=== PATIENT | female | born 1970 | race Caucasian/White ===

== ENCOUNTER 2018-04-19 12:53 | Inpatient (IN) | payer MEDICAID, SELFPAY ==
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
--- NOTE | 2018-04-19 13:31 | EKG12_ITS ---
Test Reason : ALCOHOL WITHDRAWAL Blood Pressure : / mmHG Vent. Rate : 073 BPM Atrial Rate : 073 BPM P-R Int : 136 ms QRS Dur : 078 ms QT Int : 398 ms P-R-T Axes : 068 053 072 degrees QTc Int : 438 ms Normal sinus rhythm Normal ECG No previous ECGs available Confirmed by ELLIOTT KELLY, NICOL ([id number]), tape editor SAHRA WILSON ([id number] on 04/24/2018 9:55:45 AM Referred By: Terrie Stafford Confirmed By:NICOL GALLAGHER MD
[2018-04-19 13:32] VITALS: BMI 22.0
[2018-04-19 14:00] LABS: Absolute Lymphocyte Count 1.95 X10^3/ul (0.83-4.51); Absolute Neutrophil Count 6.4 X10^3/uL (2.0-7.7); Basophil# 0.02 X10^3/uL; Basophil% 0.2 % (0-1); Eosinophils% 1.1 % (0-5); Hematocrit 42.7 % (37-47); Hemoglobin 14.3 g/dl (12.0-15.0); Lymphocyte # 1.95 X10^3/ul (4.0); Lymphocyte % 21.5 % (19-41); Mean Corp Hgb Conc 33.5 g/gl (32-36); Mean Corpuscular Hgb 31.6 pg (27.0-32.0); Mean Corpuscular Volume 94.5 fL (81-99); Mean Platelet Vol. 8.7 fl (6.2-12.0); Monocyte# 0.64 X10^3/uL; Neutrophil # 6.36 X10^3/uL (2.7-7.7); POSITIVE COUNT NO; POSITIVE DIFFERENTIAL NO; POSITIVE MORPHOLOGY NO; Platelet Count 300 K/mm3 (150-450); RBC Distribution Width CV 13.2 % (11.6-14.6); RBC Distribution Width SD 44.3 fl (35.1-43.9); Red Blood Count 4.52 M/mm3 (4.2-5.4); White Blood Count 9.1 K/mm3 (4.4-11.0)
[2018-04-19 14:09] LABS: Prothrombin Time (Protime)PT. 13.1 SECONDS (11.7-14.9)
[2018-04-19 14:16] LABS: ALB/GLOB Ratio 1.5 RATIO (0.9-2.4); AST(SGOT) 15 U/L (15-37); Alanine Aminotransfer ALT/SGPT 23 U/L (13-56); Albumin, Serum 4.4 g/dL (3.2-5.0); Alkaline Phosphatase 91 U/L (45-117); Anion Gap 5 (5-15); BUN 10 mg/dL (7-18); BUN/Creat Ratio 14.2 RATIO (10-20); Calcium,Total 8.7 mg/dL (8.5-10.1); Chloride 105 mmol/L (98-107); EST Glomerular Filtration Rate 94 mL/min (>60); Est Glom Filt Rate - Afr Amer 114 mL/min (>60); Estimated Creatinine Clearance 88.44 ml/min; Globulin 2.9 g/dL (2.2-4.2); Glucose 85 mg/dL (74-106); Potassium 4.5 mmol/L (3.5-5.1); Protein, Total 7.3 g/dL (6.4-8.2); Sodium Level 139 mmol/L (136-145)
[2018-04-19 14:27] LABS: Alcohol, Blood (Medical)-Serum < 3.0 mg/dL
[2018-04-19 14:37] VITALS: BP 141/80; PULSE 69; RESP 16; TEMP 37.2
[2018-04-19] MEDS: Buprenorphine HCl 2 MG TAB.SUBL SL ×2 (15:13→21:10)
[2018-04-19] MEDS: LORazepam 1 MG Tablet PO ×3 (15:14→23:07)
[2018-04-19] MEDS: Dicyclomine 10 MG Capsule 20 MG PO (15:14)
[2018-04-19] MEDS: Ibuprofen 600 MG Tablet PO ×2 (15:14→23:57)
[2018-04-19 16:03] LABS: Amphetamine Urine VISTA NEGATIVE (<1000 ng/mL); Barbiturate Urine VISTA NEGATIVE (< 200 ng/mL); Benzodiazepine Urine VISTA NEGATIVE (< 200 ng/mL); Cocaine Urine VISTA POSITIVE (< 300 ng/mL); Ecstacy Urine VISTA NEGATIVE (< 500 ng/mL); Methadone Urine VISTA NEGATIVE (< 300 ng/mL); PCP Urine VISTA NEGATIVE (< 25 ng/mL); THC Urine VISTA POSITIVE (< 50 ng/mL); Vista UDS pH Range 6
[2018-04-19 20:57] VITALS: BP 102/61; PULSE 78; RESP 16; TEMP 36.8
[2018-04-19] MEDS: Pramipexole Di-HCl 0.25 MG Tablet PO (21:10)
[2018-04-19] MEDS: QUEtiapine 25 MG Tablet 50 MG PO (21:10)
[2018-04-19] MEDS: metroNIDAZOLE 500 MG Tablet PO (21:10)
[2018-04-19] MEDS: Loperamide 2 MG Capsule PO (21:15)
[2018-04-20] VITALS (10 sets, daily range): BP systolic 99–120; BP diastolic 52–77; PULSE 68–98; RESP 16–18; TEMP 36.4–36.9; O2SAT 97–99
[2018-04-20] MEDS: LORazepam 1 MG Tablet PO ×4 (02:44→21:46)
[2018-04-20] MEDS: cloNIDine HCl 0.1 MG Tablet PO ×2 (02:51→21:45)
[2018-04-20] MEDS: Buprenorphine HCl 2 MG TAB.SUBL SL ×3 (05:49→21:46)
[2018-04-20] MEDS: Folic Acid 1 MG Tablet PO (08:35)
[2018-04-20] MEDS: Multivitamins,Therapeutic Tablet 1 TABLET PO (08:35)
[2018-04-20] MEDS: Thiamine Hydrochloride 100 MG Tablet PO (08:35)
--- NOTE | 2018-04-20 10:11 | PN_ITS ---
Patient Problems: Active and Suspected Problems Alcohol withdrawal (Acute) Acute opioid withdrawal (Acute) Subjective: Patient is a 47-year-old lady with multiple comorbidities including opioid and alcohol dependence admitted with a combination of both alcohol as well as opioid withdrawal. Patient has been admitted to a regular nursing floor for further management Patient seen still complaining of leg cramps and abdominal discomfort and aching all over Objective: GENERAL: Patient drowsy HEENT: Atraumatic; EYES; Anicteric, Normal Conjunctiva NECK; supple, normal thyroid, RESPIRATORY: Diminished to auscultation bilaterally, CARDIOVASCULAR: Regular S1 S2, no audible murmurs GI: soft, non-tender, normoactive bowel sounds, : No Renal angle tenderness; EXTREMITIES: No edema, no clubbing, no cyanosis. MUSCULOSKELETAL: No Joint Tenderness; no muscle waisting NEURO: Awake; no lateralizing signs. PSYCH; Flat affect Vitals/I&O's: Vital Signs Temp Pulse Resp BP Pulse Ox 97.5 F L 68 16 101/65 97 04/20/18 08:44 04/20/18 08:44 04/20/18 08:44 04/20/18 08:44 04/20/18 08:29 Oxygen Delivery Method Room Air Weight: 60 kg Body Mass Index (BMI) 22.0 Intake and Output for Last 24 Hours 04/18/18 04/19/18 04/20/18 23:59 23:59 23:59 Intake Total 200 / 200 960 / 960 Balance 200 / 200 960 / 960 Laboratory Results 04/19/18 13:50: Ethyl Alcohol < 3.0 04/19/18 13:50: WBC 9.1, RBC 4.52, Hgb 14.3, Hct 42.7, MCV 94.5, MCH 31.6, MCHC 33.5, RDW 13.2, RDW Differential 44.3 H, Plt Count 300, MPV 8.7, Immature Gran % (Auto) 0.200, Neut % (Auto) 70.0, Lymph % (Auto) 21.5, [place] % (Auto) 7.0, Eos % (Auto) 1.1, Baso % (Auto) 0.2, Absolute Neuts (auto) 6.4, Absolute Lymphs (auto) 1.95, Total Counted Not Reportable 04/19/18 13:50: Sodium 139, Potassium 4.5, Chloride 105, Carbon Dioxide 29.0, Anion Gap 5, BUN 10, Creatinine 0.70, Estim Creat Clear Calc 88.44, Est GFR (MDRD) Af Amer 114, Est GFR (MDRD) Non-Af 94, BUN/Creatinine Ratio 14.2, Glucose 85, Calcium 8.7, Total Bilirubin 0.40, AST 15, ALT 23, Alkaline Phosphatase 91, Total Protein 7.3, Albumin 4.4, Globulin 2.9, Albumin/Globulin Ratio 1.5 04/19/18 13:50: PT 13.1, INR 1.0 04/19/18 15:35: Urine Opiates Screen NEGATIVE, Urine Methadone Screen NEGATIVE, Ur Barbiturates Screen NEGATIVE, Ur Phencyclidine Scrn NEGATIVE, Ur Amphetamines Screen NEGATIVE, U Methamphetamin-MDMA NEGATIVE, U Benzodiazepines Scrn NEGATIVE, Urine Cocaine Screen POSITIVE H, U Cannabinoids Screen POSITIVE H, Ur Drug Screen Comment Current Medications Al Hydroxide/Mg Hydroxide (Mylanta Ii) 30 ml PO Q6H PRN PRN PRN Reason: dyspesia Bisacodyl (Dulcolax) 10 mg RECTAL DAILY PRN PRN Reason: Constipation Buprenorphine HCl (Buprenorphine Hcl) 4 mg SL Q8H JOSUE; Taper Stop: 04/22/18 17:59 Last Admin: 04/20/18 05:49 Dose: 4 mg Clonidine (Catapres) 0.1 mg PO Q2H PRN PRN PRN Reason: Hot/Cold Sweats or Anxiety Last Admin: 04/20/18 02:51 Dose: 0.1 mg Dicyclomine HCl (Bentyl) 20 mg PO Q6H PRN PRN PRN Reason: abdominal discomfort Last Admin: 04/19/18 15:14 Dose: 20 mg Folic Acid (Folic Acid) 1 mg PO DAILYCM JOSUE Last Admin: 04/20/18 08:35 Dose: 1 mg Hydroxyzine Pamoate (Vistaril Pamoate Capsule) 50 mg PO Q6H PRN PRN PRN Reason: Mild Anxiety (score 1/3) Ibuprofen (Motrin) 600 mg PO Q8H PRN PRN PRN Reason: Mild-Moderate Pain (1-5/10) Last Admin: 04/19/18 23:57 Dose: 600 mg Labetalol HCl (Trandate) 200 mg PO Q6H PRN PRN Reason: sys>150 Painter>85 Loperamide HCl (Imodium) 2 - 4 mg PO UD PRN PRN Reason: LOOSE STOOLS Last Admin: 04/19/18 21:15 Dose: 4 mg Lorazepam (Ativan) 1 mg IV Q4H PRN PRN PRN Reason: Severe Anxiety Lorazepam (Ativan) 2 mg IV X1 PRN PRN Reason: Seizure Lorazepam (Ativan) 1 mg PO Q6H [facility]; Taper Stop: 04/22/18 17:59 Last Admin: 04/20/18 05:49 Dose: 1 mg Metronidazole (Flagyl) 500 mg PO BID [facility] Stop: 04/24/18 10:01 Last Admin: 04/19/18 21:10 Dose: 500 mg [facility]it[facility]amin) [facility] Last Admin: 04/20/18 08:35 Dose: 1 tablet Nicotine (Nicoderm Cq (Pbkc)) 21 mg TRANSDERM. DAILY [facility] Last Admin: 04/20/18 08:35 Dose: 21 mg Ondansetron HCl (Zofran Odt) 4 mg PO Q6H PRN PRN PRN Reason: NAUSEA Pramipexole Dihydrochloride (Mirapex) 0.25 mg PO Q12H PRN PRN PRN Reason: Restless Legs Last Admin: 04/19/18 21:10 Dose: 0.25 mg Quetiapine Fumarate (Seroquel) 50 mg PO BID [facility] Last Admin: 04/19/18 21:10 Dose: 50 mg Thiamine HCl (Vitamin B1) [facility] Last Admin: 04/20/18 08:35 Dose: 100 mg Medical Necessity - Tobacco Use Smoking Status: Heavy Smoker (>10/day) Tobacco Use: Cigarettes Assessment/Plan All Active Problems Alcohol withdrawal (Acute) Acute opioid withdrawal (Acute) Patient is a 47-year-old lady with multiple comorbidities including opioid and alcohol dependence admitted with a combination of both alcohol as well as opioid withdrawal. Patient has been admitted to a regular nursing floor for further management 1. Acute opioid withdrawal patient has been admitted to regular nursing floor for medical stabilization using Subutex 2. Acute alcohol withdrawal patient was counseled on cessation currently on lorazepam 3. History of peptic ulcer disease 4. Depression with anxiety 5. Essential hypertension: Patient was placed on labetalol as needed as well as clonidine 6. DVT prophylaxis SC Lovenox Active Medications Al Hydroxide/Mg Hydroxide (Mylanta Ii) 30 ml PO Q6H PRN PRN PRN Reason: dyspesia Bisacodyl (Dulcolax) 10 mg RECTAL DAILY PRN PRN Reason: Constipation Buprenorphine HCl (Buprenorphine Hcl) 2 mg SL Q8H [facility]; Taper Stop: 04/22/18 17:59 Last Admin: 04/20/18 14:34 Dose: 2 mg Clonidine (Catapres) 0.1 mg PO Q2H PRN PRN PRN Reason: Hot/Cold Sweats or Anxiety Last Admin: 04/20/18 02:51 Dose: 0.1 mg Dicyclomine HCl (Bentyl) 20 mg PO Q6H PRN PRN PRN Reason: abdominal discomfort Last Admin: 04/19/18 15:14 Dose: 20 mg Folic Acid (Folic Acid) [facility] Last Admin: 04/20/18 08:35 Dose: 1 mg Hydroxyzine Pamoate (Vistaril Pamoate Capsule) 50 mg PO Q6H PRN PRN PRN Reason: Mild Anxiety (score 1/3) Ibuprofen (Motrin) 600 mg PO Q8H PRN PRN PRN Reason: Mild-Moderate Pain (1-5/10) Last Admin: 04/19/18 23:57 Dose: 600 mg Labetalol HCl (Trandate) 200 mg PO Q6H PRN PRN Reason: sys>150 Painter>85 Loperamide HCl (Imodium) 2 - 4 mg PO UD PRN PRN Reason: LOOSE STOOLS Last Admin: 04/19/18 21:15 Dose: 4 mg Lorazepam (Ativan) 1 mg IV Q4H PRN PRN PRN Reason: Severe Anxiety Lorazepam (Ativan) 2 mg IV X1 PRN PRN Reason: Seizure Lorazepam (Ativan) 1 mg PO Q6H [facility]OS[facility]; Taper Stop: 04/22/18 17:59 Last Admin: 04/20/18 10:50 Dose: 1 mg Metronidazole (Flagyl) 500 mg PO BID [facility] Stop: 04/24/18 10:01 Last Admin: 04/20/18 10:50 Dose: 500 mg Multivitamins ([facility]ivitamin) [facility] Last Admin: 04/20/18 08:35 Dose: 1 tablet Nicotine (Nicoderm Cq (Pbkc)) 21 mg TRANSDERM. DAILY [facility] Last Admin: 04/20/18 08:35 Dose: 21 mg Ondansetron HCl (Zofran Odt) 4 mg PO Q6H PRN PRN PRN Reason: NAUSEA Pramipexole Dihydrochloride (Mirapex) 0.25 mg PO Q12H PRN PRN PRN Reason: Restless Legs Last Admin: 04/19/18 21:10 Dose: 0.25 mg Quetiapine Fumarate (Seroquel) 50 mg PO BID [facility] Last Admin: 04/20/18 10:50 Dose: 50 mg Thiamine HCl (Vitamin B1) [facility] Last Admin: 04/20/18 08:35 Dose: 100 mg Code Visit Inpatient E&M: [id number] [facility] Hosp L3
[2018-04-20] MEDS: metroNIDAZOLE 500 MG Tablet PO ×2 (10:50→21:46)
[2018-04-20] MEDS: QUEtiapine 25 MG Tablet 50 MG PO ×2 (10:50→21:46)
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
[2018-04-20] MEDS: Ibuprofen 600 MG Tablet PO (21:45)
[2018-04-20] MEDS: Dicyclomine 10 MG Capsule 20 MG PO (21:45)
[2018-04-20] MEDS: Pramipexole Di-HCl 0.25 MG Tablet PO (21:46)
[2018-04-20] MEDS: Ondansetron ODT 4 MG Tablet PO (21:46)
[2018-04-21] VITALS (8 sets, daily range): BP systolic 92–118; BP diastolic 59–74; PULSE 70–93; RESP 16; TEMP 36.3–36.7; O2SAT 95
[2018-04-21] MEDS: LORazepam 1 MG Tablet PO ×3 (04:05→18:00)
[2018-04-21] MEDS: Dicyclomine 10 MG Capsule 20 MG PO (04:05)
[2018-04-21] MEDS: cloNIDine HCl 0.1 MG Tablet PO ×2 (04:05→21:56)
[2018-04-21] MEDS: Ondansetron ODT 4 MG Tablet PO ×2 (04:06→21:55)
[2018-04-21] MEDS: Buprenorphine HCl 2 MG TAB.SUBL SL ×2 (06:07→17:59)
[2018-04-21] MEDS: Ibuprofen 600 MG Tablet PO ×3 (06:08→21:58)
[2018-04-21] MEDS: Enoxaparin 40 MG/0.4 ML Syringe SC (06:08)
--- NOTE | 2018-04-21 08:45 | PN_ITS ---
Patient Problems: Active and Suspected Problems Alcohol withdrawal (Acute) Acute opioid withdrawal (Acute) Subjective: Patient seen tearful during my discussion with her this a.m. Still complains of abdominal and leg cramps. Objective: GENERAL: cooperative HEENT: Atraumatic; EYES; Anicteric, Normal Conjunctiva NECK; supple, normal thyroid, RESPIRATORY: Diminished to auscultation bilaterally, CARDIOVASCULAR: Regular S1 S2, no audible murmurs GI: soft, non-tender, normoactive bowel sounds, : No Renal angle tenderness; EXTREMITIES: No edema, no clubbing, no cyanosis. MUSCULOSKELETAL: No Joint Tenderness; no muscle waisting NEURO: Awake; no lateralizing signs. PSYCH; tearful Vitals/I&O's: Vital Signs Temp Pulse Resp BP Pulse Ox 97.9 F 81 16 92/60 95 04/21/18 06:05 04/21/18 06:05 04/21/18 06:05 04/21/18 06:05 04/21/18 06:02 Oxygen Delivery Method Room Air Weight: 60 kg Body Mass Index (BMI) 22.0 Intake and Output for Last 24 Hours 04/19/18 04/20/18 04/21/18 23:59 23:59 23:59 Intake Total 200 / 200 2230 / 2230 237 / 237 Balance 200 / 200 2230 / 2230 237 / 237 Current Medications Al Hydroxide/Mg Hydroxide (Mylanta Ii) 30 ml PO Q6H PRN PRN PRN Reason: dyspesia Bisacodyl (Dulcolax) 10 mg RECTAL DAILY PRN PRN Reason: Constipation Buprenorphine HCl (Buprenorphine Hcl) 2 mg SL Q12H [facility]; Taper Stop: 04/22/18 17:59 Last Admin: 04/21/18 06:07 Dose: 2 mg Clonidine (Catapres) 0.1 mg PO Q2H PRN PRN PRN Reason: Hot/Cold Sweats or Anxiety Last Admin: 04/21/18 04:05 Dose: 0.1 mg Dicyclomine HCl (Bentyl) 20 mg PO Q6H PRN PRN PRN Reason: abdominal discomfort Last Admin: 04/21/18 04:05 Dose: 20 mg Enoxaparin Sodium (Lovenox) 40 mg SC DAILY@0600 JOSUE Last Admin: 04/21/18 06:08 Dose: 40 mg [facility]) [facility] Last Admin: 04/20/18 08:35 Dose: 1 mg Hydroxyzine Pamoate (Vistaril Pamoate Capsule) 50 mg PO Q6H PRN PRN PRN Reason: Mild Anxiety (score 1/3) Ibuprofen (Motrin) 600 mg PO Q8H PRN PRN PRN Reason: Mild-Moderate Pain (1-5/10) Last Admin: 04/21/18 06:08 Dose: 600 mg Labetalol HCl (Trandate) 200 mg PO Q6H PRN PRN Reason: sys>150 Painter>85 Loperamide HCl (Imodium) 2 - 4 mg PO UD PRN PRN Reason: LOOSE STOOLS Last Admin: 04/19/18 21:15 Dose: 4 mg Lorazepam (Ativan) 1 mg IV Q4H PRN PRN PRN Reason: Severe Anxiety Lorazepam (Ativan) 2 mg IV X1 PRN PRN Reason: Seizure Lorazepam (Ativan) 1 mg PO Q6H [facility]; Taper Stop: 04/22/18 17:59 Last Admin: 04/21/18 04:05 Dose: 1 mg Metronidazole (Flagyl) 500 mg PO BID [facility] Stop: 04/24/18 10:01 Last Admin: 04/20/18 21:46 Dose: 500 mg Multivit[facility] ([facility]amin) [facility] Last Admin: 04/20/18 08:35 Dose: 1 tablet Nicotine (Nicoderm Cq (Pbkc)) 21 mg TRANSDERM. DAILY [facility] Last Admin: 04/20/18 08:35 Dose: 21 mg Ondansetron HCl (Zofran Odt) 4 mg PO Q6H PRN PRN PRN Reason: NAUSEA Last Admin: 04/21/18 04:06 Dose: 4 mg Pramipexole Dihydrochloride (Mirapex) 0.25 mg PO Q12H PRN PRN PRN Reason: Restless Legs Last Admin: 04/20/18 21:46 Dose: 0.25 mg Quetiapine Fumarate (Seroquel) 50 mg PO BID [facility] Last Admin: 04/20/18 21:46 Dose: 50 mg Thiamine HCl (Vitamin B1) [facility] Last Admin: 04/20/18 08:35 Dose: 100 mg Medical Necessity - Tobacco Use Smoking Status: Heavy Smoker (>10/day) Tobacco Use: Cigarettes Assessment/Plan All Active Problems Alcohol withdrawal (Acute) Acute opioid withdrawal (Acute) Patient is a 47-year-old lady with multiple comorbidities including opioid and alcohol dependence admitted with a combination of both alcohol as well as opioid withdrawal. Patient has been admitted to a regular nursing floor for further management 1. Acute opioid withdrawal patient has been admitted to regular nursing floor for medical stabilization using Subutex. 2. Acute alcohol withdrawal patient was counseled on cessation currently on lorazepam 3. History of peptic ulcer disease 4. Depression with anxiety 5. Essential hypertension: Patient was placed on labetalol as needed as well as clonidine 6. DVT prophylaxis SC Lovenox 7. 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
[2018-04-21] MEDS: Multivitamins,Therapeutic Tablet 1 TABLET PO (10:45)
[2018-04-21] MEDS: Thiamine Hydrochloride 100 MG Tablet PO (10:45)
[2018-04-21] MEDS: Folic Acid 1 MG Tablet PO (10:45)
[2018-04-21] MEDS: QUEtiapine 25 MG Tablet 50 MG PO ×2 (10:45→21:52)
[2018-04-21] MEDS: metroNIDAZOLE 500 MG Tablet PO ×2 (10:45→21:52)
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
--- NOTE | 2018-04-21 13:03 | NURSING ---
SPOKE WITH TAMMY AT [employer]. INDICATES THAT PT HAS [employer] INSURANCE AND THEY WILL PROVIDE TRANSPORTATION TO [facility] ON TUESDAY. THE PHONE NUMBER TO CALL ONCE A DISCHARGE ORDER IS PLACED IS[facility], WHEN PHONING [employer], PLEASE GIVE THEM CHARGE NURSE DIRECT NUMBER SO THEY CAN CALL WHEN THEY ARRIVE TO [facility] TO PICK PT UP. ADDRESS TO [facility]: [address] [place] [address]
[2018-04-21] MEDS: Pramipexole Di-HCl 0.25 MG Tablet PO (14:33)
[2018-04-21] MEDS: hydrOXYzine PAM 25 MG Capsule 50 MG PO (14:33)
[2018-04-22 02:13] VITALS: BP 92/48; PULSE 85; RESP 16; TEMP 36.4
[2018-04-22] MEDS: LORazepam 1 MG Tablet PO ×2 (02:16→09:04)
[2018-04-22 05:44] VITALS: BP 104/62; PULSE 73; RESP 16; TEMP 36.4
[2018-04-22] MEDS: Enoxaparin 40 MG/0.4 ML Syringe SC (05:47)
[2018-04-22] MEDS: Buprenorphine HCl 2 MG TAB.SUBL SL (05:47)
[2018-04-22 08:07] VITALS: BP 99/59; PULSE 89; RESP 16; TEMP 36.6; O2SAT 92
[2018-04-22] MEDS: Folic Acid 1 MG Tablet PO (09:04)
[2018-04-22] MEDS: Multivitamins,Therapeutic Tablet 1 TABLET PO (09:05)
[2018-04-22] MEDS: Thiamine Hydrochloride 100 MG Tablet PO (09:05)
[2018-04-22] MEDS: QUEtiapine 25 MG Tablet 50 MG PO (09:05)
[2018-04-22] MEDS: metroNIDAZOLE 500 MG Tablet PO (09:06)
--- NOTE | 2018-04-22 09:42 | DCINST_ITS ---
- Discharge Diagnoses Current Active Problems: Current Active and Chronic Problems Alcohol withdrawal (Acute) Acute opioid withdrawal (Acute) HTN (hypertension) (Chronic) Nicotine dependence with current use (Chronic) Narcotic dependence (Chronic) EtOH dependence (Chronic) You will use the following diet at home:: No restrictions Discharge Activity: Return to Normal Activity Allergies/Adverse Reactions: Allergies morphine Adverse Reaction (Mild, Verified 04/19/18 13:54) really irratated Primary Care Physician: Care Physician,No Primary [Primary Care Provider] - Test Results: Test results from this visit will be discussed in further detail at your follow- up appointment, if applicable. Proposed Discharge Date: 04/22/18
--- NOTE | 2018-04-22 09:42 | PCM.DC.SUM ---
Discharge Date and Diagnosis - Problem List Patient Problems: Active and Suspected Problems Alcohol withdrawal (Acute) Acute opioid withdrawal (Acute) Date of Admission: 04/19/18 Date of Discharge: 04/22/18 - Primary Discharge Diagnosis Active and Suspected Problems Alcohol withdrawal (Acute) Acute opioid withdrawal (Acute) - Secondary Discharge Diagnosis Chronic Problems HTN (hypertension) (Chronic) Nicotine dependence with current use (Chronic) Narcotic dependence (Chronic) EtOH dependence (Chronic) Hospital Course and Treatment Summary of Care Provided: Patient is a 47-year-old lady with multiple comorbidities including opioid and alcohol dependence admitted with a combination of both alcohol as well as opioid withdrawal. Patient admitted to a regular nursing floor for further management 1. Acute opioid withdrawal patient has been admitted to regular nursing floor for medical stabilization using Subutex. 2. Acute alcohol withdrawal patient was counseled on cessation 3. History of peptic ulcer disease 4. Depression with anxiety 5. Essential hypertension: Patient was placed on labetalol as needed as well as clonidine 6. DVT prophylaxis SC Lovenox 7. Tobacco dependence counseled on cessation, offered nicotine patch for tobacco cravings Patient Problems: Active and Suspected Problems Alcohol withdrawal (Acute) Acute opioid withdrawal (Acute) Objective: GENERAL: cooperative HEENT: Atraumatic; EYES; Anicteric, Normal Conjunctiva NECK; supple, normal thyroid, RESPIRATORY: Diminished to auscultation bilaterally, CARDIOVASCULAR: Regular S1 S2, no audible murmurs GI: soft, non-tender, normoactive bowel sounds, : No Renal angle tenderness; EXTREMITIES: No edema, no clubbing, no cyanosis. MUSCULOSKELETAL: No Joint Tenderness; no muscle waisting NEURO: Awake; no lateralizing signs. - Physical Exam Vital Signs Temp Pulse Resp BP Pulse Ox 97.8 F 89 16 99/59 L 92 04/22/18 08:07 04/22/18 08:07 04/22/18 08:07 04/22/18 08:07 04/22/18 08:07 Oxygen Delivery Method Room Air Weight: 60 kg Body Mass Index (BMI) 22.0 Intake and Output for Last 24 Hours 04/20/18 04/21/18 04/22/18 23:59 23:59 23:59 Intake Total 2230 / 2230 1077 / 1077 200 / 200 Balance 2230 / 2230 1077 / 1077 200 / 200 Discharge Diet: No Restrictions Discharge Activity: Return to Normal Activity Primary Care Physician: Care Physician,No Primary [Primary Care Provider] - Disposition: Home Minutes spent on discharge:: 40 Patient Condition:: Stable Medical Necessity - Tobacco Use Smoking Status: Heavy Smoker (>10/day) Tobacco Use: Cigarettes Meaningful Use Info Meaningful Use Diagnoses (Choose all that apply): None applicable Code Visit Inpatient E&M: 32619 Disch Hosp
--- NOTE | 2018-04-22 09:50 | NURSING ---
called to arrange transportation with [facility].
--- NOTE | 2018-04-22 13:23 | NURSING ---
called [facility] again for transportation. dispatch stated that horse and wagon driver was there 30 min ago. but did not call floor to let nursing know he was there. dispatch was going to send another horse and wagon driver to pick pt up. told [facility] to please call floor to let us know he is here to pick pt up.
--- NOTE | 2018-04-22 13:55 | NURSING ---
[facility] called and stated they would have a line haul truck driver here [id number]. pt waiting in lobby with nursing assist.
--- OUTSIDE RECORDS SUMMARY | 2018-06-24 09:34 | XMS RPT_ITS ---
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 Unless otherwise noted, all testing performed by [place] [address] CLIA: [id number] Gamer: Ludwig Rolle M.D. ALCOHOL, MEDICAL Collected: 12/20/2017 Status: F Source: [facility] 8:12 AM [facility] REPOSITORY TYPE CODE TESTS RESULT OUT OF RANGE REFERENCE UNITS LAB ALCMD G% Normal Alcohol Negative [Medical] Performed By: #### ALC #### Unless otherwise noted, all testing performed by [place] [address] CLIA: [id number] Gamer: Ludwig Rolle M.D. PROTIME Collected: 12/20/2017 Status: F Source: [facility] 8:11 AM [facility] REPOSITORY TYPE CODE TESTS RESULT OUT OF RANGE REFERENCE UNITS LAB PT. 11.8-14.3 Seconds Normal Protime 12.3 LAB INR Normal INR 0.95 Result Comment: The [employer] recommended therapeutic range for Warfarin (Coumadin) therapy goals: PROPHYLAXIS/TREATMENT of: INR Venous Thrombosis, Pulmonary Embolism 2.0-3.0 Prevention of VTE (Orthopedic Surgery) 2.0-3.0 Atrial Fibrillation 2.0-3.0 Myocardial Infarction 2.0-3.0 Mechanical Prosthetic Heart Valves (Aortic position) 2.0-3.0 Mechanical Prosthetic Heart Valves (Mitral Position) 2.5-3.5 [employer] evidence-based clinical practice guidelines. CHEST. 2012 (9th ed) Performed By: #### PT, CHEM8, EDCTNI, CBCWOD, HCGQL, PTT #### Unless otherwise noted, all testing performed by [place] [address] CLIA: [id number] Gamer: Ludwig Rolle M.D. PARTIAL THROMBOPLASTIN Collected: 12/20/2017 Status: F Source: [facility] 8:11 AM [facility] REPOSITORY TYPE CODE TESTS RESULT OUT OF REFERENCE UNITS RANGE LAB PTT 23.0-34.0 Seconds Partial Normal Thromboplastin Time 27 Result Comment: Suggested therapeutic range for PTT is 68-104 sec. Performed By: #### PT, CHEM8, EDCTNI, CBCWOD, HCGQL, PTT #### Unless otherwise noted, all testing performed by [place] [address] CLIA: [id number] Gamer: Ludwig Rolle M.D. HCG, QUALITATIVE Collected: 12/20/2017 Status: F Source: [facility] 8:11 AM [facility] REPOSITORY TYPE CODE TESTS RESULT OUT OF REFERENCE UNITS RANGE LAB HCGQL HCG, Normal Qualitative Negative Result Comment: Negative: The result is less than or equal to 5 mIU/mL of HCG. Performed By: #### PT, CHEM8, EDCTNI, CBCWOD, HCGQL, PTT #### Unless otherwise noted, all testing performed by [address] [place], [place] [address] CLIA: [id number] Gamer: Ludwig Rolle M.D. BASIC METABOLIC PANEL Collected: 12/20/2017 Status: F Source: [facility] 8:11 AM [facility] REPOSITORY TYPE CODE TESTS RESULT OUT OF REFERENCE UNITS RANGE LAB GLU 70-99 mg/dL High Glucose 164 Result Comment: This test result might be falsely depressed or falsely elevated on samples drawn from patients taking Sulfasalazine and Sulfapyridine. Venipuncture should occur prior to taking either of these drugs. LAB BUN 8-25 mg/dL BUN 18 LAB CREA 0.40-1.10 mg/dL Creatinine 0.84 LAB eGFR ml/min/1.73sq .m eGFR,NonAfrican-Am erican >=60 Result Comment: Non- GFR Calc eGFR is an estimated Glomerular Filtration Rate based on the value of the patient's serum creatinine. In outpatients, eGFR should be used as a helpful tool in screening for CKD. In inpatients or patients with acute renal failure, eGFR represents the GFR at the moment of the draw and should be used with caution. LAB eGFRB ml/min/1.73sq.m eGFR, -Iranian >=60 Result Comment: GFR Calc LAB CALCM 8.4-10.2 mg/dL Calcium 8.8 LAB NA 135-145 mmol/L Sodium 143 LAB K 3.5-5.1 mmol/L Potassium 3.9 LAB CL 98-108 mmol/L Chloride 108 LAB CO2 21-32 mmol/L CO2 25 Performed By: #### PT, CHEM8, EDCTNI, CBCWOD, HCGQL, PTT #### Unless otherwise noted, all testing performed by [address] [place], [place] [address] CLIA: [id number] Gamer: Ludwig Rolle M.D. ED CARDIAC TROPONIN-I Collected: 12/20/2017 Status: F Source: [facility] 8:11 AM [facility] REPOSITORY TYPE CODE TESTS RESULT OUT OF RANGE REFERENCE UNITS LAB EDCTNI < 45 ng/L Normal ED Cardiac < 15 Troponin-I Result Comment: Elevation of troponin indicates some degree of myocardial necrosis but unless there is a significant rise and/or fall (if elevated) identified, it unlikely that an acute event has taken place Samples from patients routinely receiving high dose biotin therapy (100-300 mg/day) may show falsely decreased results. Please correlate clinically. Performed By: #### PT, CHEM8, EDCTNI, CBCWOD, HCGQL, PTT #### Unless otherwise noted, all testing performed by [place] [address] CLIA: [id number] Gamer: Ludwig Rolle M.D. DRUGS OF ABUSE, Collected: 12/20/2017 Status: F Source: [facility] URINE 7:32 AM [facility] REPOSITORY TYPE CODE TESTS RESULT OUT OF RANGE REFERENCE UNITS LAB CUTOFF Normal DOA Cutoffs See comment. Result Comment: Drugs of Abuse, Urine Presumptive Positive Cutoff Concentrations . Amphetamine/Methamphetamine: 1000 ng/ml Barbiturates: 200 ng/ml Benzodiazepines and metabolities: 200 ng/ml Cannabinoids: 50 ng/ml Cocaine/Benzoylecgonine: 300 ng/ml Methadone: 300 ng/ml Opiates: 300 ng/ml Oxycodone/Oxymorphone: 100 ng/ml LAB AMPH None Detected Normal Amphetamines,Ur None Detected LAB SMITA None Detected Normal Barbiturates,Ur None Detected LAB MANUELA None Detected Normal Benzodiazepine,Ur None Detected LAB CAN50 None Detected Cannabinoids,Ur Abnormal Presumptive Positive LAB COCAI None Detected Cocaine,Ur Abnormal Presumptive Positive LAB METHD None Detected Normal Methadone,Ur None Detected LAB OPIATE None Detected Normal Opiates,Ur None Detected LAB OXYCOD None Detected Normal Oxycodone, Urine None Detected Result Comment: THESE DRUGS OF ABUSE TESTS ARE PROVIDED A MEDICAL SCREENING ONLY. POSITIVE RESULTS ARE NOT CONFIRMED BY GCMS Performed By: #### DRUGSCRU #### Unless otherwise noted, all testing performed by [place] [address] CLIA: [id number] Gamer: Ludwig Rolle M.D. [employer] DRUG Collected: 08/16/2017 Status: F Source: [facility] TESTING 5:06 PM [facility] REPOSITORY TYPE CODE TESTS RESULT OUT OF REFERENCE UNITS RANGE LAB MLMILLEN Normal [facility] See Health Drug EMR Testing Result Comment: Scanned report from [facility] ([id number] [address] [place], [place]) can be found in the [place] EMR ([facility]) system. Performed By: #### MLMILLEN #### Unless otherwise noted, all testing performed by [address] [address] CLIA: [id number] Gamer: Ludwig Rolle M.D. [facility] DRUG Collected: 08/09/2017 Status: F Source: [facility] TESTING 2:46 PM [facility] REPOSITORY TYPE CODE TESTS RESULT OUT OF REFERENCE UNITS RANGE LAB MLMILLEN Normal [facility] See Health Drug EMR Testing Result Comment: Scanned report from [facility] ([id number] [address] [place], [place]) can be found in the [place] EMR ([facility] [employer]) system. Performed By: #### MLMILLEN #### Unless otherwise noted, all testing performed by [address] [address] CLIA: [id number] Gamer: Ludwig Rolle M.D. ALLERGIES ALLERGIES DATE TYPE / CODE NAME / CODE REACTION SEVERITY SOURCE 04/26/2018 Drug morphine/F00 really [facility] Allergy/4160 [id number]([facility] [address](SNOMED RM) Repository CT) ENCOUNTERS ENCOUNTERS ADMIT/DISCHARGE ACCOUNT NUMBER ADMITTING ENCOUNTER LOCATION SOURCE CLASS 04/26/2018/04/26/19 [id number] Emergency [address] ding:ED Repository 04/19/2018/04/22/19 [id number] S[place], Inpatient [address] Encounter [facility] ding:AA4Deuy Repository : [id number]: 1 04/19/2018 [id number] [place]i, Ambulatory BMSBuilding: Kirillerika Kumar BMS.[facility] Repository 04/19/2018 [id number] S[place]i, Ambulatory BMSBuilding: [place] Stacy BMS.[facility] Repository 04/19/2018 [id number] Sementi, Ambulatory BMSBuilding: Kirill Stacy BMS.[facility] Repository 04/19/2018 [id number] Sementi, Ambulatory BMSBuilding: Kirill Stacy BMS.[facility] Repository 12/20/2017/12/21/[id number] Nicole Emergency [facility] 18 Jalaj lding:A1E [place] and Emergency [place] DeptRoom: Hospitals E O5FHErd: Repository E [id number] 08/16/2017 [id number] Guillermo, Ambulatory [facility] Dr. Kiran Bond [facility] Repository 08/09/2017 [id number] Miquel KELLY, [facility] [place] [facility] Repository PAYERS PAYERS ENCOUNTER GUARANTOR PAYER SUBSCRIBER SOURCE 04/26/2018 REBBECCA L Primary REBBECCA L [place] [facility]' Insurance:CARESOURCEP [facility] Community [address] Number: [id number] [id number] Repository [address]Zxo: (330) Date:2018-04-26P O [phone] () [address]ATTN: [place] [address]ZP: 04/26/2018 Secondary NOT GIVENUNK Kirill Insurance:SELF PAY [facility] Number: Effective Repository Date:2018-04-26 04/19/2018 REBBECCA L Primary REBBECCA L Kirill [facility] Insurance[facility] [address] Number: [id number] Hospital [address]Rmu: . (HP) [id number] Repository Date:2018-04-19P [address]ATTN: [place] [address]IQ: 04/19/2018 Secondary NOT GIVENUNK [place] Insurance:SELF PAY [facility] Number: Effective Repository Date:2018-04-19 04/19/2018 REBBECCA L Primary REBBECCA L [place] [facility] Insurance:CARESOURCEP [facility] [address] Number: [id number] Hospital [address]Sfz: 0 (HP) [id number] Repository Date:2018-04-19 [address]ATTN: CLAIMS [place] [address]VC: 04/19/2018 Secondary NOT GIVENUNK Kir[place] Insurance:SELF PAY [facility] Number: Effective Repository Date:2018-04-19 04/19/2018 REBBECCA L Primary REBBECCA L [place] [facility] Insurance:CARESOURCEP [facility]: [address] Number: [id number] Hospital [address]Xbd: . (HP) [id number] Repository Date:2018-04-19 [address]ATTN: [place] [address]YK: 04/19/2018 Secondary NOT GIVENUNK [place] Insurance:SELF PAY [facility] Number: Effective Repository Date:2018-04-19 04/19/2018 REBBECCA L Primary REBBECCA L [place] [facility] Insurance:CARESOURCEP [facility] [address] Number: [id number] Hospital [address]Ibn: . (HP) [id number] Repository Date:2018-04-19 [address]ATTN: [place] [address]FQ: 04/19/2018 Secondary NOT GIVENUNK [place] Insurance:SELF PAY [facility] Number: Effective Repository Date:2018-04-19 04/19/2018 REBBECCA L Primary REBBECCA L Kir[place] [facility] Insurance:CARESOURCEP [facility]: [address] Number: [id number] Hospital [address]Gpi: . (HP) [id number] Repository Date:2018-04-19 [address]ATTN: [place] [address]WB: 04/19/2018 Secondary NOT GIVENUNK [place] Insurance:SELF PAY [facility]: Effective Repository Date:2018-04-19 12/20/2017 Primary REBBECCA L [facility] Insurance:CareSourceP WESTFIELDDOB: Yong yancy monteiro Number: [id number] [facility] [id number] BOX Repository Date:[address] Name:Health[address] [address]Uey: [phone], [place] [phone] () [address]PE: 08/16/2017 Primary [facility]:CareSourceP WESTFIELDDOB: [place] Number: [id number] [facility] [id number] [address] Repository Date:[place], [place] Name:HealthPO [address] [address]Zin: [phone], [place] [phone] () [address]UR: 08/09/2017 Primary [facility]CCA L [facility] Insurance:CareSourceP WESTFIELDDOB: [place] Number: [id number] [facility] [id number] S MAIN Repository Date:[place], [place] Name:HealthPO [address] [address]Czr: [phone], [place] [phone] () [address]KG:
== END 2018-04-22 15:40 | disposition home or self-care (01) | DRG 773 ==
PROVIDERS: Admitting Provider Internal Medicine; Referring Provider Internal Medicine; Visit Provider Internal Medicine
DX: F11.23 Opioid dependence with withdrawal (principal); F10.239 Alcohol dependence with withdrawal, unspecified; I10 Essential (primary) hypertension; N76.0 Acute vaginitis; Z23 Encounter for immunization; B96.89 Other specified bacterial agents as the cause of diseases classified elsewhere; F17.210 Nicotine dependence, cigarettes, uncomplicated; Z87.11 Personal history of peptic ulcer disease; Z82.49 Family history of ischemic heart disease and other diseases of the circulatory system; Z87.442 Personal history of urinary calculi; F41.8 Other specified anxiety disorders; Z59.0 Homelessness
CPT/HCPCS: 36415; 80053; 80307; 80320; 85025; 85610; 93005; 97802; 99406; 90686; G0480

== ENCOUNTER 2018-04-26 17:16 | Emergency (ER) | payer MEDICAID, SELFPAY ==
[2018-04-19 13:32] VITALS: BMI 22.0
[2018-04-26 17:18] VITALS: BP 153/92; PULSE 84; RESP 18; TEMP 37.1; O2SAT 97; BMI 25.0
--- NOTE | 2018-04-26 17:55 | ED.VISSUMM ---
- ER Visit Summary Date of Service: 04/26/18 Chief Complaint: Withdrawal symptoms History of Present Illness: The patient is a 47 F presenting secondary to withdrawal symptoms. Patient recently was detoxed as an inpatient from alcohol opiates and cocaine. She reports that I was discharged with no medications. Patient states that she is having generalized pain, nausea, and ultimately having withdrawal type symptoms. She reports that she was unable to get any sort of medications, and was unable to get her follow-up for multiple reasons. Physical Examination: Vital signs are within normal limits, patient is afebrile. General: Patient is well-nourished well-developed and in no acute distress. Head: Normocephalic, atraumatic Eyes: Pupils equal round and reactive bilaterally, extra occular motion intact bialterally ENT: Moist mucous membranes Neck: Supple, no lymphadenopathy, no JVD, no meningismus CVS: Heart regular rate and rhythm, no murmurs, rubs or gallops, radial pulses 2+ bilaterally Resp: Respirations nondistressed, lung sounds clear bilaterally Abdomen: Soft, nontender, nondistended, no palpable masses, normal bowel sounds Back: Nontender Extremities: Nontender, atraumatic, active full range of motion, no peripheral edema Skin: warm, no rashes, no petechia Neuro: Alert and oriented x 4, CN 2-12 intact, no lateralizing neurological defecits Psyc: Normal affect Test Results: None indicated Emergency Department Course and Treatment: This is a well-appearing female complaining of withdrawal symptoms. Patient will be treated in the emergency department with Catapres Phenergan and Naprosyn and discharged with the same. She will follow-up with [facility]. Disposition: Discharge Impression: 1. Withdrawal 2. Polysubstance abuse This note was generated with [employer] dictation software. It may contain incorrect words, spelling, and punctuation that were not noted in review of the chart prior to signing ED Disposition - Plan for ED Patient: Disposition: Home or Assisted Living Chief Complaint: General Illness Diagnosis: Polysubstance abuse Instructions: ED Drug Abuse General Prescriptions: proMETHazine tablet [Phenergan] 25 mg PO Q6H PRN PRN #10 tab PRN Reason: Nausea Naproxen [Naprosyn] 500 mg PO BID PRN #20 tab Clonidine HCl [Catapres] 0.1 mg PO BID PRN #10 tab PRN Reason: Anxiety Additional Instructions: F/u With [facility]
[2018-04-26] MEDS: Naproxen 250 MG Tablet 500 MG PO (17:56)
[2018-04-26] MEDS: proMETHazine 25 MG Tablet PO (17:56)
[2018-04-26] MEDS: cloNIDine HCl 0.1 MG Tablet PO (17:56)
[2018-04-26 18:05] VITALS: BP 145/76; PULSE 86; RESP 18
== END 2018-04-26 18:06 | disposition home or self-care (01) ==
PROVIDERS: Emergency Provider Emergency Medicine
DX: F10.239 Alcohol dependence with withdrawal, unspecified (principal); F11.23 Opioid dependence with withdrawal; F14.23 Cocaine dependence with withdrawal
CPT/HCPCS: 99283

== ENCOUNTER 2018-07-11 20:46 | Emergency (ER) | payer MEDICAID, SELFPAY ==
[2018-07-11 20:46] VITALS: BP 128/85; PULSE 82; RESP 16; TEMP 36.4; O2SAT 97; BMI 25.2
--- NOTE | 2018-07-11 21:02 | RAD_ITS ---
HISTORY: PT FELL PAIN DEFORMITY RT HAND 1ST METACARPAL DIP EXAM/TECHNIQUE: XR right thumb, 3 views. COMPARISON: None. FINDINGS: # of images incl. paperwork: 3 2 mm triangular ossific fragment extends off the radial proximal corner of the distal phalanx. No other evidence of fracture. 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 Alignment anatomic. Mild soft tissue swelling at the level of the interphalangeal joint. RAD/Finger(s) Min 2 Views IMPRESSION: 2 mm triangular ossific fragment extends off the radial proximal corner of the distal phalanx. This could represent a fractured osteophyte or a small chronic ossific density. Please correlate for point tenderness. Comparison with priors would be helpful. at 2151 Reported and signed by: Elia Marcelo MD Electronically Signed: Elia Marcelo, at 21:50 EDT Tel , Service support ,
--- NOTE | 2018-07-11 21:04 | ED.VISSUMM ---
- ER Visit Summary Date of Service: 07/11/18 Chief Complaint: Tripped and fell with right thumb injury History of Present Illness: The patient is a 48 F with history of drug abuse. Patient states she was outside today she tripped over uneven pavement and injured her right thumb. Denies any her head. No LOC. Physical Examination: HEENT exam unremarkable. Atraumatic. Pupils round reactive light. C-spine nontender. Trachea midline. Lungs clear to auscultation bilaterally. Heart regular rate and rhythm no murmur. Chest wall nontender. Abdomen soft nontender. Pelvic girdle intact. Hips are nontender. Left upper and both lower extremities are nontender with normal range of motion. No deformity. Pulses right upper extremity tenderness at the thumb primarily at the interphalangeal joint. No deformity. Normal flexion extension. Skin intact. Otherwise the fingers of the right hand are unremarkable. Nontender. Palm is nontender. Normal range of motion neurovascular intact. Right forearm, elbow, shoulder and wrist are nontender normal range of motion no deformity. Back only tender at the very distal tailbone. Otherwise the cervical, thoracic and lumbar spine are unremarkable. Test Results: Right thumb x-ray 3 views shows what appears to be a tiny avulsion fracture from the proximal end of the distal phalanx and interphalangeal joint. There is arthritis there. There is no old film available for comparison to determine if this is new or old but it does look acute. I did go over the films with the patient. Emergency Department Course and Treatment: Tylenol for pain Treatment Plan: Repeat exam she has normal range of motion of the thumb. Full extension and flexion. She can extend against resistance. There is no signs of a extensor tendon rupture. Ice and elevate. Tylenol Motrin for pain. Disposition: Discharge Impression: Tripped and fell Right thumb contusion and minor avulsion fracture of the proximal of the distal phalanx This note was generated with [employer] dictation software. It may contain incorrect words, spelling, and punctuation that were not noted in review of the chart prior to signing ED Disposition - Plan for ED Patient: Referrals: Care Physician,No Primary [NON-STAFF] -
[2018-07-11] MEDS: Acetaminophen 500 MG Tablet 1000 MG PO (21:26)
--- NOTE | 2018-07-11 21:40 | ED.DEP ---
ED Disposition - Plan for ED Patient: Disposition: Home or Assisted Living Instructions: ED Contusion Upper Ext Referrals: Care Physician,No Primary [NON-STAFF] - As Needed Additional Instructions: You had a very minor avulsion fracture (tiny pull off of the piece of bone) of your thumb joint. This does not need to be casted or need any surgery. It should improve with time. Ice and elevate. Tylenol and Motrin for pain and Motrin for inflammation. Follow-up if not improving.
[2018-07-11 21:50] VITALS: BP 120/81; PULSE 74; RESP 16; O2SAT 98
== END 2018-07-11 21:51 | disposition home or self-care (01) ==
PROVIDERS: Emergency Provider Emergency Medicine; Family Provider Nurse Practitioner Primary Care; PCP Nurse Practitioner Primary Care
DX: S62.521A Displaced fracture of distal phalanx of right thumb, initial encounter for closed fracture (principal); S60.011A Contusion of right thumb without damage to nail, initial encounter; W18.09XA Striking against other object with subsequent fall, initial encounter; Y93.9 Activity, unspecified; Y92.9 Unspecified place or not applicable; Z72.0 Tobacco use
CPT/HCPCS: 73140; 99283

== ENCOUNTER 2020-09-27 19:59 | Inpatient (IN) | payer MEDICAID, SELFPAY ==
[2020-09-27 20:00] VITALS: BP 159/85; PULSE 89; RESP 16; TEMP 36.8; O2SAT 97; BMI 28.7
[2020-09-27 20:28] VITALS: PULSE 92; RESP 14; O2SAT 99
--- NOTE | 2020-09-27 20:29 | EDS_ITS ---
HPI History of Present Illness Chief Complaint: Substance Abuse Informant: patient Narrative Narrative: Patient is a 50-year-old female with a past medical history of hypertension, CAD who presents to the emergency department requesting detox from heroin, alcohol and cocaine. She states that she has been using heroin regularly over the past year. She typically uses 1 to 2 g/day and snorts it. She smokes around 1 g of cocaine per day. She states she is done this for many years. She also drinks around 24 to 48 ounces of beer per day. She states she has gone through detox before in the past but it has been many years. She is having some nausea at this time but denies any other symptoms. She does smoke cigarettes. She states that she drank a full bottle of tequila yesterday and did not get any buzzed so she realized that she needed to get help. [facility] Medical History Alcohol abuse Anxiety Chronic pain COPD (chronic obstructive pulmonary disease) Crohn's colitis Depression Hypertension Kidney stones Myocardial infarct Seizures Smoker Substance abuse Home Medications cetirizine 10 mg PO DAILY 09/27/20 [History Last Taken 09/26/20] doxycycline hyclate 100 mg PO BID 09/27/20 [History Last Taken 09/26/20] guaifenesin [Mucinex] 1,200 mg PO BID 09/27/20 [History Last Taken 09/26/20] prednisone 40 mg PO DAILY 09/27/20 [History Last Taken 09/26/20] Allergy/AdvReac Type Severity Reaction Status Date / Time morphine AdvReac Mild really Verified 07/11/18 20:49 irratated trazodone AdvReac Pain in Verified 09/27/20 20:03 joints Social History Smoking Status: Heavy Smoker (>10/day) ROS ROS ED Constitutional Constitutional ED: Denies chills or fever(s) Eyes Eyes: Denies change in vision ENT ENT ED: Denies epistaxis or rhinorrhea Cardiovascular Cardiovascular: Denies chest pain or palpitations Respiratory/Chest Respiratory/Chest: Denies cough, dyspnea or dyspnea on exertion Gastrointestinal Gastrointestinal: Reports nausea; Denies abdominal pain, diarrhea or vomiting Genitourinary Genitourinary ED: Denies dysuria, hematuria or urinary frequency Musculoskeletal Musculoskeletal: Denies back pain or neck pain Integumentary Denies rash Neurologic Neurologic: Denies dizziness, headache(s) or weakness EXAM Physical Exam Const Vital Signs: 09/27/20 20:00 09/27/20 20:28 Temperature 98.2 F Temperature Source Temporal Pulse Rate 89 92 Respiratory Rate 16 14 Blood Pressure 159/85 H Blood Pressure Mean 109 Pulse Ox 97 99 Oxygen Delivery Method Room Air Room Air Positive well nourished and well developed General Appearance ED: well developed and NAD HEENT Reports normocephalic, head/scalp atraumatic and moist mucous membranes Eyes PERRL and EOMs intact bilaterally Neck supple Chest Wall inspection of chest normal Resp normal respiratory effort and clear to auscultation bilaterally Auscultation: Negative for rales, rhonchi or wheezes Cardio regular rate, regular rhythm and no murmurs GI normal to inspection, nondistended, normoactive bowel sounds and non-tender Palpation: soft; Negative for guarding or rebound tenderness present Back/Spine no CVA tenderness Extremity normal to inspection General Extremety ED: Negative for edema General Extremity: Negative for edema Neuro CN's II-XII intact bilaterally and no sensory deficits noted Sensorium / Orientation: alert Motor Exam: strength 5/5 throughout Psych mental status grossly normal Skin no rashes or lesions noted MDM MDM MDM Narrative Medical decision making narrative: Patient presents to the emergency department to request to detox from heroin, cocaine and alcohol. Upon arrival to the emerge department vital signs within normal limits. She is in no acute distress. Will check basic lab work and plan on admission to the hospital. Patient's lab work-up did not reveal a significant acute abnormality. Her potassium was mildly low at 3.3 otherwise no other electrolyte disturbance. Liver enzymes within normal limits. She does not have a high white blood cell count. She is not anemic. Talk screen was positive for cocaine. Alcohol level was 73. She otherwise has been stable throughout ED stay. I did discuss the case with the hospitalist who was willing to admit the patient. Lab Data Labs: Laboratory Results - last 24 hr 09/27/20 09/27/20 09/27/20 20:13 20:38 20:38 WBC 7.3 RBC 4.26 Hgb 13.0 Hct 39.2 MCV 92.0 MCH 30.5 MCHC 33.2 RDW Std Deviation 45.4 H RDW Coeff of Daniel 13.5 Plt Count 251 MPV 8.4 Immature Gran % (Auto) 0.400 Neut % (Auto) 48.6 Lymph % (Auto) 37.4 [place] % (Auto) 9.6 Eos % (Auto) 3.6 Baso % (Auto) 0.4 Absolute Neuts (auto) 3.6 Absolute Lymphs (auto) 2.73 Nucleated RBC % 0 Sodium 142 Potassium 3.3 L Chloride 105 Carbon Dioxide 30.0 Anion Gap 7 BUN 13 Creatinine 0.54 L Estim Creat Clear Calc 110.91 Est GFR (MDRD) Af Amer 154 Est GFR (MDRD) Non-Af 127 BUN/Creatinine Ratio 24.2 H Glucose 87 Calcium 8.3 L Total Bilirubin 0.30 AST 14 L ALT 23 Alkaline Phosphatase 99 Total Protein 6.4 Albumin 3.6 Globulin 2.8 Albumin/Globulin Ratio 1.3 Serum , Qual Urine Opiates Screen NEGATIVE Urine Methadone Screen NEGATIVE Ur Barbiturates Screen NEGATIVE Ur Phencyclidine Scrn NEGATIVE Ur Amphetamines Screen NEGATIVE U Methamphetamin-MDMA NEGATIVE U Benzodiazepines Scrn NEGATIVE Urine Cocaine Screen POSITIVE H U Cannabinoids Screen NEGATIVE Ur Drug Screen Comment Ethyl Alcohol 09/27/20 09/27/20 20:38 20:38 WBC RBC Hgb Hct MCV MCH MCHC RDW Std Deviation RDW Coeff of Daniel Plt Count MPV Immature Gran % (Auto) Neut % (Auto) Lymph % (Auto) [place] % (Auto) Eos % (Auto) Baso % (Auto) Absolute Neuts (auto) Absolute Lymphs (auto) Nucleated RBC % Sodium Potassium Chloride Carbon Dioxide Anion Gap BUN Creatinine Estim Creat Clear Calc Est GFR (MDRD) Af Amer Est GFR (MDRD) Non-Af BUN/Creatinine Ratio Glucose Calcium Total Bilirubin AST ALT Alkaline Phosphatase Total Protein Albumin Globulin Albumin/Globulin Ratio Serum , Qual NEGATIVE Urine Opiates Screen Urine Methadone Screen Ur Barbiturates Screen Ur Phencyclidine Scrn Ur Amphetamines Screen U Methamphetamin-MDMA U Benzodiazepines Scrn Urine Cocaine Screen U Cannabinoids Screen Ur Drug Screen Comment Ethyl Alcohol 73.0 Discharge Plan Dx/Rx/DC Orders Clinical Impression: Polysubstance abuse Disposition Disposition: Acute Care Hospital [facility] Discharge Date/Time: 09/27/20 22:15
[2020-09-27 20:45] LABS: Absolute Lymphocyte Count 2.73 X10^3/uL (0.83-4.51); Absolute Neutrophil Count 3.6 X10^3/uL (2.0-7.7); Basophil# 0.03 X10^3/uL; Basophil% 0.4 % (0-1); Eosinophil# 0.26 X10^3/uL; Eosinophils% 3.6 % (0-5); Hematocrit 39.2 % (37-47); Lymphocyte # 2.73 X10^3/ul (0.83-4.51); Lymphocyte % 37.4 % (19-41); Mean Corp Hgb Conc 33.2 g/dL (32-36); Mean Corpuscular Hgb 30.5 pg (27.0-32.0); Mean Platelet Vol. 8.4 fl (6.2-12.0); Monocyte% 9.6 % (0-10); NRBC Flagged by Analyzer 0 % (0-5); Neutrophil # 3.55 X10^3/uL (2.7-7.7); Neutrophil % 48.6 % (47-70); Platelet Count 251 K/mm3 (150-450); RBC Distribution Width CV 13.5 % (11.6-14.6); RBC Distribution Width SD 45.4 fl (35.1-43.9); Red Blood Count 4.26 M/mm3 (4.2-5.4); White Blood Count 7.3 K/mm3 (4.4-11.0)
[2020-09-27 21:00] LABS: Internal QC Validated? YES +Cl - CLEAR BKGD; Pregnancy, Serum, hCG Quali. NEGATIVE Negative
[2020-09-27 21:05] LABS: ALB/GLOB Ratio 1.3 RATIO (0.9-2.4); AST(SGOT) 14 U/L (15-37); Alanine Aminotransfer ALT/SGPT 23 U/L (13-56); Albumin, Serum 3.6 g/dL (3.2-5.0); Alkaline Phosphatase 99 U/L (45-117); Anion Gap 7 (5-15); BUN 13 mg/dL (7-18); BUN/Creat Ratio 24.2 RATIO (10-20); Calcium,Total 8.3 mg/dL (8.5-10.1); Chloride 105 mmol/L (98-107); Creatinine, Serum 0.54 mg/dL (0.55-1.02); EST Glomerular Filtration Rate 127 mL/min (>60); Est Glom Filt Rate - Afr Amer 154 mL/min (>60); Estimated Creatinine Clearance 110.91 ml/min; Globulin 2.8 g/dL (2.2-4.2); Glucose 87 mg/dL (74-106); Potassium 3.3 mmol/L (3.5-5.1); Protein, Total 6.4 g/dL (6.4-8.2); Sodium Level 142 mmol/L (136-145)
[2020-09-27 21:07] LABS: Amphetamine Urine VISTA NEGATIVE (<1000 ng/mL); Barbiturate Urine VISTA NEGATIVE (< 200 ng/mL); Benzodiazepine Urine VISTA NEGATIVE (< 200 ng/mL); Cocaine Urine VISTA POSITIVE (< 300 ng/mL); Ecstacy Urine VISTA NEGATIVE (< 500 ng/mL); Methadone Urine VISTA NEGATIVE (< 300 ng/mL); PCP Urine VISTA NEGATIVE (< 25 ng/mL); THC Urine VISTA NEGATIVE (< 50 ng/mL); Vista UDS pH Range 6
--- NOTE | 2020-09-27 22:10 | PCM.HP.STD ---
Documented by User: ANJANA Syed 09/27/20 22:26 HPI - General General Date of Admission: 09/27/20 HPI Narrative JUSTYN GARCIA, is a 50 F who presents with a desire for detoxification from cocaine, heroin, and alcohol. Patient states that she uses 1 to 2 g daily of both cocaine and heroin along with various amounts of alcohol. Patient states she decided to get help after blacking out last weekend and and then drinking a bottle of tequila last night without getting a bus. Patient states that she is also concerned for her son's wellbeing who is also a drug user. [facility]LY [facility] Medical History Alcohol abuse Anxiety Chronic pain COPD (chronic obstructive pulmonary disease) Crohn's colitis Depression Hypertension Kidney stones Myocardial infarct Seizures Smoker Substance abuse Home Medications cetirizine 10 mg PO DAILY 09/27/20 [History Last Taken 09/26/20] doxycycline hyclate 100 mg PO BID 09/27/20 [History Last Taken 09/26/20] guaifenesin [Mucinex] 1,200 mg PO BID 09/27/20 [History Last Taken 09/26/20] prednisone 40 mg PO DAILY 09/27/20 [History Last Taken 09/26/20] Allergy/AdvReac Type Severity Reaction Status Date / Time morphine AdvReac Mild really Verified 07/11/18 20:49 irratated trazodone AdvReac Pain in Verified 09/27/20 20:03 joints Social History Smoking Status: Current every day smoker tobacco type: cigarettes ROS Constitutional Constitutional: Reports chills; Denies anorexia, fatigue or fever(s) Cardiovascular Cardiovascular: Denies chest pain, edema or palpitations Respiratory/Chest Respiratory/Chest: Denies cough, hemoptysis, shortness of breath at rest or shortness of breath with exertion Gastrointestinal Gastrointestinal: Reports nausea; Denies abdominal pain, constipation, diarrhea or vomiting Genitourinary Genitourinary: Denies dysuria Musculoskeletal Musculoskeletal: Denies back pain, extremity pain, joint pain or joint stiffness Integumentary Integumentary: Denies dry skin Neurologic Neurologic: Reports tremor(s); Denies abnormal gait, abnormal speech, confusion or dizziness Psychiatric Psychiatric: Denies anxiety or depression Endocrine Endocrinology: Denies change in body appearance Hematologic/Lymphatic Hematologic/Lymphatic: Denies easy bleeding or easy bruising Vital Signs Vital Signs Vital Signs: 09/27/20 20:00 09/27/20 20:28 Temperature 98.2 F Temperature Source Temporal Pulse Rate 89 92 Respiratory Rate 16 14 Blood Pressure 159/85 H Blood Pressure Mean 109 Pulse Ox 97 99 Oxygen Delivery Method Room Air Room Air Weight Weight: 172 lb 6.424 oz Body Mass Index (BMI) 28.7 Physical Exam Const oriented x3 General Appearance: cooperative Orientation / Consciousness: lethargic HEENT normocephalic and head/scalp atraumatic Eyes conjunctivae normal and no scleral icterus Neck no lymphadenopathy, supple and no JVD General: trachea midline Resp normal respiratory effort and clear to auscultation bilaterally Cardio regular rate, regular rhythm, S1 normal heart sound and S2 normal heart sound GI normal to inspection, nondistended, normoactive bowel sounds, soft to palpation and non-tender Extremity normal capillary refill and no clubbing, cyanosis or edema General Extremity: no tenderness to palpation of joints or extremities Skin General Skin Exam: no breakdown and turgor normal Lesions: no lesions Rashes: no rashes Neuro oriented x3, moves all extremities, no focal motor deficits and no sensory deficits noted Speech: speech normal Psych thought process normal, cooperative and affect normal Appearance: appropriate Results Lab / Micro Data Result Diagrams: 09/27/20 20:38 09/27/20 20:38 Labs: Laboratory Results - last 24 hr 09/27/20 09/27/20 09/27/20 20:13 20:38 20:38 WBC 7.3 RBC 4.26 Hgb 13.0 Hct 39.2 MCV 92.0 MCH 30.5 MCHC 33.2 RDW Std Deviation 45.4 H RDW Coeff of Daniel 13.5 Plt Count 251 MPV 8.4 Immature Gran % (Auto) 0.400 Neut % (Auto) 48.6 Lymph % (Auto) 37.4 [place] % (Auto) 9.6 Eos % (Auto) 3.6 Baso % (Auto) 0.4 Absolute Neuts (auto) 3.6 Absolute Lymphs (auto) 2.73 Nucleated RBC % 0 Sodium 142 Potassium 3.3 L Chloride 105 Carbon Dioxide 30.0 Anion Gap 7 BUN 13 Creatinine 0.54 L Estim Creat Clear Calc 110.91 Est GFR (MDRD) Af Amer 154 Est GFR (MDRD) Non-Af 127 BUN/Creatinine Ratio 24.2 H Glucose 87 Calcium 8.3 L Total Bilirubin 0.30 AST 14 L ALT 23 Alkaline Phosphatase 99 Total Protein 6.4 Albumin 3.6 Globulin 2.8 Albumin/Globulin Ratio 1.3 Serum , Qual Urine Opiates Screen NEGATIVE Urine Methadone Screen NEGATIVE Ur Barbiturates Screen NEGATIVE Ur Phencyclidine Scrn NEGATIVE Ur Amphetamines Screen NEGATIVE U Methamphetamin-MDMA NEGATIVE U Benzodiazepines Scrn NEGATIVE Urine Cocaine Screen POSITIVE H U Cannabinoids Screen NEGATIVE Ur Drug Screen Comment Ethyl Alcohol 09/27/20 09/27/20 20:38 20:38 WBC RBC Hgb Hct MCV MCH MCHC RDW Std Deviation RDW Coeff of Daniel Plt Count MPV Immature Gran % (Auto) Neut % (Auto) Lymph % (Auto) [place] % (Auto) Eos % (Auto) Baso % (Auto) Absolute Neuts (auto) Absolute Lymphs (auto) Nucleated RBC % Sodium Potassium Chloride Carbon Dioxide Anion Gap BUN Creatinine Estim Creat Clear Calc Est GFR (MDRD) Af Amer Est GFR (MDRD) Non-Af BUN/Creatinine Ratio Glucose Calcium Total Bilirubin AST ALT Alkaline Phosphatase Total Protein Albumin Globulin Albumin/Globulin Ratio Serum , Qual NEGATIVE Urine Opiates Screen Urine Methadone Screen Ur Barbiturates Screen Ur Phencyclidine Scrn Ur Amphetamines Screen U Methamphetamin-MDMA U Benzodiazepines Scrn Urine Cocaine Screen U Cannabinoids Screen Ur Drug Screen Comment Ethyl Alcohol 73.0 Assessment & Plan Assessment/Plan (1) Alcohol withdrawal: QUALIFIERS: Complication of substance-induced condition: uncomplicated Qualified Code(s): F10.230 - Alcohol dependence with withdrawal, uncomplicated (2) Acute opioid withdrawal: PLAN: 1. Alcohol withdrawal -Admit to [facility] for trip participation in [facility] program -Phenobarbital taper ordered along with supportive medications per protocol -Vital signs per protocol -Regular diet -Consult case management for coordination with 180 for outpatient follow-up 2. Acute opioid withdrawal -Buprenorphine taper ordered per protocol 3. Hypokalemia -Potassium chloride 40 mEq p.o. x1 ordered 4. Hypertension -Blood pressure currently stable, will trend BP and heart rate -Will continue home medication regimen when home med list verified 5. Nicotine dependence -NicoDerm patch ordered DVT prophylaxis-no pharmacological prophylaxis indicated This patient was seen by ANJANA Syed under the supervision of Dr. Rivera. Documented by User: Dr. Tj Rivera MD 09/27/20 22:34 HPI - General General Date of Admission: 09/27/20 [facility] Medical History Alcohol abuse Anxiety Chronic pain COPD (chronic obstructive pulmonary disease) Crohn's colitis Depression Hypertension Kidney stones Myocardial infarct Seizures Smoker Substance abuse Home Medications cetirizine 10 mg PO DAILY 09/27/20 [History Last Taken 09/26/20] doxycycline hyclate 100 mg PO BID 09/27/20 [History Last Taken 09/26/20] guaifenesin [Mucinex] 1,200 mg PO BID 09/27/20 [History Last Taken 09/26/20] prednisone 40 mg PO DAILY 09/27/20 [History Last Taken 09/26/20] Allergy/AdvReac Type Severity Reaction Status Date / Time morphine AdvReac Mild really Verified 07/11/18 20:49 irratated trazodone AdvReac Pain in Verified 09/27/20 20:03 joints Social History Smoking Status: Current every day smoker tobacco type: cigarettes Results Lab / Micro Data Result Diagrams: 09/27/20 20:38 09/27/20 20:38 Charges/Coding Addendum Addendum: Hospitalist note: I am seeing this patient in conjunction with Maryellen Davis. I independently seen and examined the patient. History and physical, laboratory data and imaging studies reviewed and I concur with the above admission and treatment plan. Patient presented to the emergency room requesting admission for acute alcohol and opiate withdrawal for medical stabilization. Patient stated that she has been using 1 to 2 g of cocaine and heroin daily, she has been sniffing them. She has been using large amounts of alcohol every day. She complained of body aches and pains, restlessness and tremors as well as nausea. She had history of hypertension and she is supposed to be on clonidine. She mentioned that she had a history of heart attack last year but no history of cardiac interventions and currently, she is not taking any aspirin or statins. She smokes 1 pack every day. In the emergency department, her vital signs were stable. Routine blood work was remarkable for potassium of 3.3, otherwise normal. LFT was unremarkable. Serum test was negative. Urine drug screen was positive for cocaine. Blood alcohol level was 73. She is being admitted for acute alcohol and opioid withdrawal for medical stabilization. - Physical Exam General: Alert, Oriented x3, Cooperative, No apparent distress. HEENT: Atraumatic, PERRLA, EOMI. Neck: Supple, No JVD, Negative Carotid Bruits, Trachea Midline, Thyroid Normal. Lungs: Clear to auscultation, Normal air movement, No rhonchi, No wheeze, No rales. Cardiovascular: Regular rate, Regular Rhythm, Normal S1, Normal S2, PMI Normal. Abdomen: Bowel Sounds Present, Soft, Non Tender, Non-Distended, No Hepato-splenomegaly. Extremities: No clubbing, No cyanosis, No edema Skin: No rashes, No breakdown Neurological: Cranial nerves are intact, neuro grossly intact Vital Signs are stable. Assessment and plan: #1 acute opiate withdrawal: Admit to MedSurg floor, initiate tapering to course with Subutex, as needed Bentyl, clonidine, Vistaril, methocarbamol, Zofran, Imodium, trazodone, consult 180 program. #2 acute alcohol withdrawal: Initiate phenobarbital taper, thiamine and folic acid supplement, as needed Bentyl, Vistaril, methocarbamol, Imodium, Zofran and trazodone, consult 180 program. #3 other chronic medical problems: Stable, continue current medications as above. This note was generated with [employer] dictation software. It may contain incorrect words, spelling, and punctuation that were not noted in checking the note before signing. Visit Charges Inpatient E&M: 69337 Init Hosp L2
[2020-09-27 22:14] VITALS: BP 136/74; PULSE 84; RESP 15; TEMP 36.7; O2SAT 96
[2020-09-27 22:22] VITALS: BMI 28.0
[2020-09-27 22:23] VITALS: BP 156/85; PULSE 77; RESP 18; TEMP 36.4; O2SAT 96
[2020-09-27] MEDS: Potassium Chloride Oral Tablet 20 MEQ 40 MEQ PO (23:09)
[2020-09-27] MEDS: Buprenorphine HCl 2 MG TAB.SUBL SL (23:09)
[2020-09-27] MEDS: Phenobarbital 32.4 MG Tablet 64.8 MG PO (23:09)
[2020-09-28 02:30] VITALS: BP 130/63; PULSE 90; RESP 16; TEMP 36.8; O2SAT 95
[2020-09-28] MEDS: Phenobarbital 32.4 MG Tablet 64.8 MG PO ×6 (02:42→22:37)
[2020-09-28 06:00] VITALS: BP 174/89; PULSE 83; RESP 20; TEMP 36.4; O2SAT 97
[2020-09-28] MEDS: Buprenorphine HCl 2 MG TAB.SUBL SL ×3 (06:16→22:36)
[2020-09-28] MEDS: Methocarbamol 750 MG Tablet 1500 MG PO ×2 (06:16→22:37)
[2020-09-28] MEDS: hydrOXYzine PAM 25 MG Capsule 50 MG PO (06:16)
[2020-09-28] MEDS: Thiamine Hydrochloride 100 MG Tablet PO (07:31)
[2020-09-28] MEDS: Folic Acid 1 MG Tablet PO (07:31)
[2020-09-28 10:25] VITALS: BP 146/95; PULSE 82; RESP 16; TEMP 37; O2SAT 97
[2020-09-28] MEDS: Loperamide 2 MG Capsule PO (10:36)
[2020-09-28] MEDS: Gabapentin 300 MG Capsule PO (10:36)
--- NOTE | 2020-09-28 11:05 | PCM.PN.HOSP ---
Subjective Subjective Patient is complaining of pretty significant diarrhea and body aches this morning. She has not asked for anything for diarrhea. I encouraged her to ask for her medications for symptoms. She continues on Suboxone. Objective Data Objective Data Vital Signs: Vital Signs Temp Pulse Resp BP Pulse Ox 98.6 F 82 16 146/95 H 97 09/28/20 10:25 09/28/20 10:25 09/28/20 10:25 09/28/20 10:25 09/28/20 10:25 Oxygen Delivery Method Room Air Weight: 76.6 kg Body Mass Index (BMI) 28.0 Intake & Output: Intake and Output for Last 24 Hours 09/26/20 09/27/20 09/28/20 23:59 23:59 23:59 Intake Total 1000 / 1000 Balance 1000 / 1000 Lab / Micro Data Result Diagrams: 09/27/20 20:38 09/27/20 20:38 Labs: Laboratory Results - last 24 hr 09/27/20 09/27/20 09/27/20 20:13 20:38 20:38 WBC 7.3 RBC 4.26 Hgb 13.0 Hct 39.2 MCV 92.0 MCH 30.5 MCHC 33.2 RDW Std Deviation 45.4 H RDW Coeff of Daniel 13.5 Plt Count 251 MPV 8.4 Immature Gran % (Auto) 0.400 Neut % (Auto) 48.6 Lymph % (Auto) 37.4 [place] % (Auto) 9.6 Eos % (Auto) 3.6 Baso % (Auto) 0.4 Absolute Neuts (auto) 3.6 Absolute Lymphs (auto) 2.73 Nucleated RBC % 0 Sodium 142 Potassium 3.3 L Chloride 105 Carbon Dioxide 30.0 Anion Gap 7 BUN 13 Creatinine 0.54 L Estim Creat Clear Calc 110.91 Est GFR (MDRD) Af Amer 154 Est GFR (MDRD) Non-Af 127 BUN/Creatinine Ratio 24.2 H Glucose 87 Calcium 8.3 L Total Bilirubin 0.30 AST 14 L ALT 23 Alkaline Phosphatase 99 Total Protein 6.4 Albumin 3.6 Globulin 2.8 Albumin/Globulin Ratio 1.3 Serum , Qual Urine Opiates Screen NEGATIVE Urine Methadone Screen NEGATIVE Ur Barbiturates Screen NEGATIVE Ur Phencyclidine Scrn NEGATIVE Ur Amphetamines Screen NEGATIVE U Methamphetamin-MDMA NEGATIVE U Benzodiazepines Scrn NEGATIVE Urine Cocaine Screen POSITIVE H U Cannabinoids Screen NEGATIVE Ur Drug Screen Comment Ethyl Alcohol 09/27/20 09/27/20 20:38 20:38 WBC RBC Hgb Hct MCV MCH MCHC RDW Std Deviation RDW Coeff of Daniel Plt Count MPV Immature Gran % (Auto) Neut % (Auto) Lymph % (Auto) [place] % (Auto) Eos % (Auto) Baso % (Auto) Absolute Neuts (auto) Absolute Lymphs (auto) Nucleated RBC % Sodium Potassium Chloride Carbon Dioxide Anion Gap BUN Creatinine Estim Creat Clear Calc Est GFR (MDRD) Af Amer Est GFR (MDRD) Non-Af BUN/Creatinine Ratio Glucose Calcium Total Bilirubin AST ALT Alkaline Phosphatase Total Protein Albumin Globulin Albumin/Globulin Ratio Serum , Qual NEGATIVE Urine Opiates Screen Urine Methadone Screen Ur Barbiturates Screen Ur Phencyclidine Scrn Ur Amphetamines Screen U Methamphetamin-MDMA U Benzodiazepines Scrn Urine Cocaine Screen U Cannabinoids Screen Ur Drug Screen Comment Ethyl Alcohol 73.0 Physical Exam Const alert, oriented x3 and no apparent distress Constitutional Narrative: Middle-aged white female lying in bed, appears older than stated age, nontoxic, curled up in the position on her right side under blankets, interactive minimally but appropriately Exam Limitations: no limitations Resp normal respiratory effort, no retractions, no use of accessory muscles and No clear to auscultation bilaterally Resp Narrative: Few scattered end expiratory wheezes Auscultation: wheezes; Negative for crackles, rales or rhonchi Cardio regular rhythm, S1 normal heart sound, S2 normal heart sound, no murmurs, no rub, no gallops, no clicks and no JVD Cardio Narrative: Mild tachycardia GI normal to inspection, nondistended, normoactive bowel sounds, soft to palpation, non-tender and non-distended Palpation: Negative for tender, guarding or hernia Extremity normal to inspection, full ROM and no clubbing, cyanosis or edema Peripheral Pulses: Yes pulses 2+ throughout Neuro oriented x3, moves all extremities and no focal motor deficits Sensorium / Orientation: awake and alert Speech: speech normal Psych Psych Narrative: Affect flat Assessment & Plan Assessment/Plan (1) Acute opioid withdrawal: (2) Alcohol withdrawal: QUALIFIERS: Complication of substance-induced condition: uncomplicated Qualified Code(s): F10.230 - Alcohol dependence with withdrawal, uncomplicated (3) Polysubstance abuse: (4) HTN (hypertension): (5) Nicotine dependence with current use: (6) Hypokalemia: PLAN: Acute opiate withdrawal -Continue Suboxone taper -Continue supportive medications -Check hepatitis and HIV status -180 to evaluate tomorrow -Patient son is admitted on the first floor and his mom is his ride home so we will need to coordinate discharge most likely Acute alcohol withdrawal/detox -Phenobarbital taper -Thiamine folate -Supportive medications -180 consult Polysubstance abuse -See above COPD/tobacco abuse -Falls -Recommend cessation -Nicotine patch Crohn's disease -Patient is on no current therapy for this Hypertension -Patient is on no therapy as an outpatient for this -Monitor blood pressures while here -Once her withdrawal starts to subside to monitor blood pressures and consider antihypertensives as needed History of nephrolithiasis -No current issues Depression/anxiety -Patient takes no medications for this at baseline -Evaluate as an outpatient DVT prophylaxis -Early ambulation protocol CODE STATUS -Full code Charges/Coding Visit Charges Inpatient E&M: 71401 Subs Hosp L2
[2020-09-28 13:54] VITALS: BP 159/84; PULSE 80; RESP 16; TEMP 36.8; O2SAT 98
--- NOTE | 2020-09-28 14:37 | ADDICTION ---
This group underwriter met with PT to conduct ASAM, MSE, DUDIT, assessments and to fill out JOSSE for [facility]. Pt A+Ox4. All assessments completed, faxed to [facility] and placed in PT's chart. PT to f/u with Liliana on 09/29/20 for d/c planning. PT currently requesting methadone. Stated I had 2 heart attacks w/d from Suboxone. I don't want that again. Clinician explained methadone regulations and that [facility] did not provide that. PT signed JOSSE for Dr. Woodard's office to f/u and potentially schedule appt.
[2020-09-28 18:07] VITALS: BP 129/98; PULSE 92; RESP 16; TEMP 37; O2SAT 99
[2020-09-28 22:35] VITALS: BP 162/99; PULSE 81; RESP 16; TEMP 36.5; O2SAT 99
[2020-09-29] MEDS: Phenobarbital 32.4 MG Tablet 64.8 MG PO ×4 (03:12→14:46)
[2020-09-29] MEDS: cloNIDine HCl 0.1 MG Tablet PO (03:14)
[2020-09-29 03:16] VITALS: BP 158/99; PULSE 72; RESP 18; TEMP 36.5; O2SAT 98
[2020-09-29 06:40] VITALS: BP 135/98; PULSE 76; RESP 18; TEMP 36.3; O2SAT 99
[2020-09-29 06:42] VITALS: BP 135/98; PULSE 76; RESP 18; TEMP 36.3; O2SAT 99
[2020-09-29] MEDS: Buprenorphine HCl 2 MG TAB.SUBL SL ×2 (06:43→14:46)
[2020-09-29] MEDS: Folic Acid 1 MG Tablet PO (07:33)
[2020-09-29] MEDS: Thiamine Hydrochloride 100 MG Tablet PO (07:33)
[2020-09-29] MEDS: Gabapentin 300 MG Capsule PO (07:33)
[2020-09-29 09:58] VITALS: BP 124/93; PULSE 90; RESP 18; TEMP 36.8; O2SAT 97
--- NOTE | 2020-09-29 10:10 | ADDICTION ---
This show card writer attempted to meet with PT. PT was asleep and did not rouse to verbal queuing. All assessments completed previous to this visit.
[2020-09-29] MEDS: Methocarbamol 750 MG Tablet 1500 MG PO (10:58)
[2020-09-29 13:54] LABS: HIV - WCH Non-Reactive (Nonreactive)
[2020-09-29 14:43] VITALS: BP 131/96; PULSE 93; RESP 18; TEMP 36.6; O2SAT 98
--- NOTE | 2020-09-29 18:25 | NURSING ---
1809 Pt said she wants to leave. AMA papers signed.
[2020-09-30 05:07] LABS: HEPATITIS B SURFACE AG Negative (Negative); Hepatitis A AB, Total Negative (Negative); Hepatitis A IgM Antibody Negative (Negative); Hepatitis B Core AB IgM Negative (Negative); Hepatitis B Core Ab Total Negative (Negative); Hepatitis C Ab <0.1 s/co ratio (0.0-0.9)
[2020-10-01 15:48] LABS: Hep B Surface Antibodies Non Reactive (.)
--- NOTE | 2020-10-01 18:21 | PCM.DC.SUM ---
Providers Date of Admission: 09/27/20 Date of Discharge: 09/29/20 Primary Care Physician: Jenni Hightower, JOSELINE-Yumiko Reason For Visit: ACUTE OPIOID/ALCOHOL WITHDRAWL Diagnosis Discharge Diagnosis (1) Acute opioid withdrawal: Status: Acute Code(s): F11.23 - Opioid dependence with withdrawal (2) Alcohol withdrawal: Status: Acute Code(s): F10.239 - Alcohol dependence with withdrawal, unspecified Qualifiers: Complication of substance-induced condition: uncomplicated Qualified Code(s): F10.230 - Alcohol dependence with withdrawal, uncomplicated (3) Polysubstance abuse: Status: Acute Code(s): F19.10 - Other psychoactive substance abuse, uncomplicated (4) HTN (hypertension): Status: Chronic Code(s): I10 - Essential (primary) hypertension (5) Nicotine dependence with current use: Status: Chronic Code(s): F17.200 - Nicotine dependence, unspecified, uncomplicated (6) Hypokalemia: Status: Acute Code(s): E87.6 - Hypokalemia Plan: Discharge diagnosis: #1 acute opiate withdrawal #2 acute alcohol withdrawal #3 polysubstance abuse #4 COPD #5 noncompliance with medical regimen #6 hypokalemia Medications at Discharge Home Medications cetirizine 10 mg PO DAILY 09/27/20 doxycycline hyclate 100 mg PO BID 09/27/20 guaifenesin [Mucinex] 1,200 mg PO BID 09/27/20 prednisone 40 mg PO DAILY 09/27/20 Hospital Course Operations None Procedures None Summary of Care Provided Minutes Spent on Discharge: 31 Hospital Course: 50-year-old white female was seen in the emergency room at [facility] requesting services for alcohol and opiate detox. Patient's tox screen was positive for cocaine, labs were remarkable for a potassium of 3.3, ethyl alcohol was 73. Patient was admitted to [place] [id number] and orders were entered using the detox order set, she was seen in consultation by addiction social work supervisor who discussed follow-up care with her as an outpatient, patient requested that she be referred to a physician who uses methadone for detox services. Patient had no untoward events during her hospitalization, abruptly on 09/29/2020, patient decided to check herself out AMA and leave the hospital. Patient was seen and examined on 09/29/2020 prior to her discharge: On examination she appeared in good health and spirits, she does not appear to be in any distress. Vital signs as documented. Skin warm and dry and without overt rashes. Neck without JVD, thyroid appears normal, trachea is midline, neck is supple. Lungs clear, normal air movement was noted. Heart exam notable for regular rhythm, normal sounds and absence of murmurs, rubs or gallops. Abdomen unremarkable and without evidence of organomegaly, masses, or abdominal aortic enlargement, bowel sounds are present in all 4 quadrants, no abdominal tenderness was noted. Extremities nonedematous, no cyanosis was noted, no clubbing was noted. Neuro: Cranial nerves II through XII are grossly intact, no focal motor deficits were noted, sensation to light touch and pinprick is intact, motor exam 5/5 throughout. Psych: Patient is alert and oriented x3, she does not appear anxious or depressed, she does not appear agitated. Patient was discharged AGAINST MEDICAL ADVICE on 09/29/2020, she appeared in stable condition. Weight / BMI Weight Weight: 76.6 kg Body Mass Index (BMI) 28.0 ABG / Lab / Microbiology Data Result Diagrams: 09/27/20 20:38 09/27/20 20:38 Laboratory: Laboratory Results - last 24 hr 09/27/20 20:38 Hepatitis A IgM Ab Negative Hepatitis A Ab Total Negative Hep Bs Antigen Negative Hep B Core Total Ab Negative Hep B Core IgM Ab Negative Hepatitis C Antibody <0.1 Hep C Ab Comment Comment Meaningful Use Info Meaningful Use Diagnoses (Choose all that apply): None applicable Discharge Plan Admission Admit Date/Time: 09/27/20 21:58 Primary Reason for Your Visit: detox Attending Provider: Georges Mejia Primary Care Provider: Jenni Hightower NP Discharge Orders/Prescriptions Prescriptions: No Action cetirizine 10 mg tablet 10 mg PO DAILY RF: 0 prednisone 20 mg Tablet 40 mg PO DAILY RF: 0 doxycycline hyclate 100 mg tablet 100 mg PO BID RF: 0 guaifenesin [Mucinex] 600 mg Tablet Extended Release 12hr 1,200 mg PO BID RF: 0 Referrals / Follow Up: Jenni Hightower NP, JOSELINE-C [Primary Care Provider] - Disposition Disposition (needs filled in before D/C Order can be placed): Against Medical Advice Charges/Coding Visit Charges Inpatient E&M: 67454 Disch Hosp
== END 2020-09-29 18:36 | disposition left against medical advice (07) | DRG 770 ==
LOC: ED 20:36 → MS3 22:04
PROVIDERS: Internal Medicine; Admitting Provider Hospitalist; Emergency Provider Emergency Medicine; PCP Nurse Practitioner Primary Care; Visit Provider Internal Medicine
DX: F11.23 Opioid dependence with withdrawal (principal); F10.239 Alcohol dependence with withdrawal, unspecified; Y90.3 Blood alcohol level of 60-79 mg/100 ml; Z53.21 Procedure and treatment not carried out due to patient leaving prior to being seen by health care provider; F17.210 Nicotine dependence, cigarettes, uncomplicated; E87.6 Hypokalemia; Z91.19 Patient's noncompliance with other medical treatment and regimen; F19.10 Other psychoactive substance abuse, uncomplicated; F32.9 Major depressive disorder, single episode, unspecified; F41.9 Anxiety disorder, unspecified; G89.29 Other chronic pain; I10 Essential (primary) hypertension; I25.2 Old myocardial infarction; J44.9 Chronic obstructive pulmonary disease, unspecified; K50.10 Crohn's disease of large intestine without complications; Z87.442 Personal history of urinary calculi
CPT/HCPCS: 36415; 80053; 80307; 82077; 84703; 85025; 86703; 86704; 86705; 86706; 86708; 86709; 86803; 87340; 99283; 99406

== ENCOUNTER 2020-10-07 17:06 | Emergency (ER) | payer MEDICAID, SELFPAY ==
[2020-10-07 17:08] VITALS: BP 142/119; PULSE 94; RESP 18; TEMP 36.3; O2SAT 96; BMI 19.7
--- NOTE | 2020-10-07 17:17 | EKG12_ITS ---
Test Reason : OD Blood Pressure : / mmHG Vent. Rate : 088 BPM Atrial Rate : 088 BPM P-R Int : 164 ms QRS Dur : 072 ms QT Int : 384 ms P-R-T Axes : 070 025 066 degrees QTc Int : 464 ms Normal sinus rhythm Septal infarct , age undetermined Abnormal ECG Confirmed by ELLIOTT KELLY, NICOL ([id number]), photo editor KAISER COFFMAN ([id number]) on 10/08/2020 2:22:52 PM Referred By: PATTI Confirmed By:NICOL GALLAGHER MD
--- NOTE | 2020-10-07 17:18 | EDS_ITS ---
HPI History of Present Illness Chief Complaint: Overdose Detail of Chief Complaint: Presents with heroin overdose and leg swelling Informant: patient Narrative Narrative: Patient presents to the emergency department via EMS from urgent care. Patient was at urgent care today with her friend that lives with her because of lower extremity edema as she has had for several days. Patient states she fell 2 days ago. While sitting in a wheelchair in the waiting room patient became unresponsive. Patient received 4 mg of Narcan by the urgent care and EMS also gave 2 mg of Narcan. Patient admits to using heroin that she snorted. Patient essentially uses daily. Patient denies drinking alcohol today. Patient denies any chest pain or shortness of breath. She does have a cough that she has had for some time and states that she was tested for COVID-19 about a week ago and was negative. Prior similar symptoms: Yes PFSH PFSH Medical History Alcohol abuse Anxiety Chronic pain COPD (chronic obstructive pulmonary disease) Crohn's colitis Depression Hypertension Kidney stones Myocardial infarct Seizures Smoker Substance abuse Home Medications cetirizine 10 mg PO DAILY 09/27/20 [History Last Taken 09/26/20] doxycycline hyclate 100 mg PO BID 09/27/20 [History Last Taken 09/26/20] guaifenesin [Mucinex] 1,200 mg PO BID 09/27/20 [History Last Taken 09/26/20] prednisone 40 mg PO DAILY 09/27/20 [History Last Taken 09/26/20] Allergy/AdvReac Type Severity Reaction Status Date / Time morphine AdvReac Mild really Verified 10/07/20 17:12 irratated trazodone AdvReac Pain in Verified 10/07/20 17:12 joints Social History Smoking Status: Current every day smoker tobacco type: cigarettes ROS ROS ED Constitutional Constitutional ED: Reports systems reviewed and no addt'l complaints, except as documented; Denies body ache(s), change in weight or chills Eyes Eyes: Denies acute decrease in peripheral vision, change in vision, double vision or loss of vision ENT ENT ED: Reports none; Denies ear pain, lip swelling, loss taste/smell, neck pain, otalgia or sore throat Cardiovascular Cardiovascular: Reports none; Denies abdominal pain, chest pain with activity, leg edema, lightheadedness, palpitations, rapid heart rate or syncope Respiratory/Chest Respiratory/Chest: Reports none and cough; Denies change in mental status, dry cough, dyspnea, hemoptysis, shortness of breath at rest or shortness of breath with exertion Gastrointestinal Gastrointestinal: Reports none; Denies abdominal pain, change in stool character, diarrhea, hematemesis, hematochezia, melena, rectal bleeding or vomiting Genitourinary Genitourinary ED: Reports none; Denies abdominal discomfort, anuria, dysuria, genital pain or polyuria Musculoskeletal Musculoskeletal: Reports none and other Details: Bilateral lower extremity edema ; Denies arthralgias, back pain, difficulty walking, extremity pain, muscle weakness or myalgias Integumentary Reports none; Denies abscess or rash Neurologic Neurologic: Reports none; Denies abnormal gait, confusion, focal weakness, frequent falls, headache(s), loss of vision, numbness, paresthesias, radicular pain, vertigo or weakness Psychiatric Psychiatric: Reports systems reviewed and no addt'l complaints, except as documented and none; Denies behavioral changes, confusion, difficulty concentrating, hallucinations, suicidal ideation, tactile hallucinations or visual hallucinations Endocrine Endocrinology: Denies none, cold intolerance, excessive sweating, fatigue or heat intolerance Hematologic/Lymphatic Hematologic/Lymphatic: Reports none; Denies anemia, easy bleeding or easy bruising Allergic/Immunologic Allergic/Immunologic ED: Denies as per HPI, none, lip swelling, mouth swelling, throat swelling, tongue swelling or hives EXAM Physical Exam Const Vital Signs: 10/07/20 17:08 10/07/20 18:15 Temperature 97.4 F L Temperature Source Oral Pulse Rate 94 84 Respiratory Rate 18 13 Blood Pressure 142/119 H 127/82 H Blood Pressure Mean 126 97 Pulse Ox 96 96 Oxygen Delivery Method Room Air Room Air Positive well nourished and well developed General Appearance ED: well developed and NAD HEENT Reports TM's clear and moist mucous membranes normocephalic and atraumatic; Negative for trauma or tenderness Tympanic Membrane ED: Yes TM's clear Eyes PERRL and EOMs intact bilaterally General Eye ED: Negative for pale conjunctiva or scleral icterus Neck no lymphadenopathy, supple and no JVD General: Negative for tenderness Chest Wall inspection of chest normal and palpation of chest normal Chest: Negative for tenderness Resp normal respiratory effort Resp Narrative: Coarse breath sounds bilaterally Effort and Inspection: Negative for respiratory distress or pain with movement Auscultation: rhonchi; Negative for wheezes or diminished lung sounds Cardio regular rate, regular rhythm, S1 normal heart sound, S2 normal heart sound and no murmurs Peripheral Pulses: pulses 2+ throughout GI normal to inspection, nondistended, normoactive bowel sounds, soft to palpation, non-tender, non-distended and no masses Back/Spine no CVA tenderness and no thoracic nor lumbar tenderness Extremity normal to inspection General Extremety ED: Negative for edema General Extremity: Negative for edema Neuro oriented x3, CN's II-XII intact bilaterally, no sensory deficits noted and gait normal Sensorium / Orientation: awake, alert, oriented to person, oriented to place and oriented to time Motor Exam: strength 5/5 throughout and strength abnormal Psych mental status grossly normal Skin no rashes or lesions noted and no wounds MDM MDM MDM Narrative Medical decision making narrative: Patient's work-up unremarkable in the emergency department. Patient was able to ambulate to the bathroom however did not give a urine sample. She does not want detox from her opiate use and states that she was just recently discharged from our hospital for the same. Patient at this point etiology of patient's leg pain unclear. After patient returned from the restroom she eloped from the emergency department. Lab Data Attestation: I reviewed the patient's lab results. Labs: Laboratory Results - last 24 hr 10/07/20 10/07/20 10/07/20 17:32 17:32 17:32 WBC 5.6 RBC 3.95 L Hgb 12.1 Hct 37.6 MCV 95.2 MCH 30.6 MCHC 32.2 RDW Std Deviation 47.1 H RDW Coeff of Daniel 13.3 Plt Count 243 MPV 8.7 Immature Gran % (Auto) 0.700 Neut % (Auto) 58.2 Lymph % (Auto) 27.0 Bennett % (Auto) 9.6 Eos % (Auto) 4.1 Baso % (Auto) 0.4 Absolute Neuts (auto) 3.3 Absolute Lymphs (auto) 1.52 Nucleated RBC % 0 Sodium 139 Potassium 3.9 Chloride 103 Carbon Dioxide 36.0 H Anion Gap 0 L BUN 10 Creatinine 0.78 Estim Creat Clear Calc 70.18 Est GFR (MDRD) Af Amer 99 Est GFR (MDRD) Non-Af 82 BUN/Creatinine Ratio 12.8 Glucose 140 H Calcium 8.2 L Troponin I High Sens 8.1 B-Natriuretic Peptide Ethyl Alcohol < 3.0 10/07/20 17:32 WBC RBC Hgb Hct MCV MCH MCHC RDW Std Deviation RDW Coeff of Daniel Plt Count MPV Immature Gran % (Auto) Neut % (Auto) Lymph % (Auto) Bennett % (Auto) Eos % (Auto) Baso % (Auto) Absolute Neuts (auto) Absolute Lymphs (auto) Nucleated RBC % Sodium Potassium Chloride Carbon Dioxide Anion Gap BUN Creatinine Estim Creat Clear Calc Est GFR (MDRD) Af Amer Est GFR (MDRD) Non-Af BUN/Creatinine Ratio Glucose Calcium Troponin I High Sens B-Natriuretic Peptide 38.8 Ethyl Alcohol EKG Initial EKG: Attestation: I personally reviewed and interpreted this EKG as follows: Comments: Sinus rhythm with a ventricular rate of 88 bpm with old septal infarct noted Discharge Plan Triage Chief Complaint: Overdose ED Provider: Ned Jenkins Dx/Rx/DC Orders Clinical Impression: Opiate abuse, continuous, Opiate overdose Instructions: ED Overdose, Opiate Prescriptions: No Action cetirizine 10 mg tablet 10 mg PO DAILY RF: 0 prednisone 20 mg Tablet 40 mg PO DAILY RF: 0 doxycycline hyclate 100 mg tablet 100 mg PO BID RF: 0 guaifenesin [Mucinex] 600 mg Tablet Extended Release 12hr 1,200 mg PO BID RF: 0 Primary Care Provider: Jenni Hightower NP Referrals: Jenni Hightower NP, [employer] [Primary Care Provider] - Disposition Disposition: Elopement
[2020-10-07] MEDS: 0.9% Normal Saline 1,000 ML 150 ML IV (17:34)
--- NOTE | 2020-10-07 17:46 | RAD_ITS ---
STUDY: X-RAY CHEST REASON FOR EXAM: Female, 50 years old. Cough TECHNIQUE: Frontal view COMPARISON: None. FINDINGS: The lungs are clear and expanded. There is no demonstrated pleural abnormality. Normal size heart. Normal mediastinum and eve. Normal visualized pulmonary arteries. Normal visualized aortic arch and descending thoracic aorta. Normal visualized thoracic spine. Normal visualized ribs, clavicles, and shoulders. There is no demonstrated abnormality of the visualized soft tissue structures of the upper abdomen. RAD/Chest 1 View (Portable) IMPRESSION: Normal x-ray examination of the chest. Electronically Signed: Lucas Cunningham DO at 20:15 EDT Tel [phone], Service support ,
[2020-10-07 17:52] LABS: Absolute Lymphocyte Count 1.52 X10^3/uL (0.83-4.51); Absolute Neutrophil Count 3.3 X10^3/uL (2.0-7.7); Basophil# 0.02 X10^3/uL; Basophil% 0.4 % (0-1); Eosinophil# 0.23 X10^3/uL; Eosinophils% 4.1 % (0-5); Hematocrit 37.6 % (37-47); Hemoglobin 12.1 g/dL (12.0-15.0); Lymphocyte # 1.52 X10^3/ul (0.83-4.51); Mean Corp Hgb Conc 32.2 g/dL (32-36); Mean Corpuscular Hgb 30.6 pg (27.0-32.0); Mean Corpuscular Volume 95.2 fL (81-99); Mean Platelet Vol. 8.7 fl (6.2-12.0); Monocyte# 0.54 X10^3/uL; Monocyte% 9.6 % (0-10); NRBC Flagged by Analyzer 0 % (0-5); Neutrophil # 3.27 X10^3/uL (2.7-7.7); Neutrophil % 58.2 % (47-70); Platelet Count 243 K/mm3 (150-450); RBC Distribution Width CV 13.3 % (11.6-14.6); RBC Distribution Width SD 47.1 fl (35.1-43.9); Red Blood Count 3.95 M/mm3 (4.2-5.4); White Blood Count 5.6 K/mm3 (4.4-11.0)
[2020-10-07 18:06] LABS: Alcohol, Blood (Medical)-Serum < 3.0 mg/dL; Anion Gap 0 (5-15); BUN 10 mg/dL (7-18); BUN/Creat Ratio 12.8 RATIO (10-20); Calcium,Total 8.2 mg/dL (8.5-10.1); Chloride 103 mmol/L (98-107); Creatinine, Serum 0.78 mg/dL (0.55-1.02); EST Glomerular Filtration Rate 82 mL/min (>60); Est Glom Filt Rate - Afr Amer 99 mL/min (>60); Estimated Creatinine Clearance 70.18 ml/min; Glucose 140 mg/dL (74-106); Potassium 3.9 mmol/L (3.5-5.1); Sodium Level 139 mmol/L (136-145); Troponin-I HS 8.1 pg/mL (3.0-53.7)
[2020-10-07 18:08] LABS: BNP,B-Type NATRIURETIC PEPTIDE 38.8 pg/mL (0-100)
[2020-10-07 18:15] VITALS: BP 127/82; PULSE 84; RESP 13; O2SAT 96
--- NOTE | 2020-10-07 20:36 | ED.RN ---
1930, pt yelling at visitor in room. visitor left and patient ripped out IV and walked out of room. when asked by this nurse where pt was going, pt yelled fuck you, I am not losing my home over you people and walked out ER doors. pt walked with no problems. dr espitia notified.
[2020-10-07 22:53] LABS: CPK Total, Creatine Kinase 67 U/L (26-192)
== END 2020-10-07 19:30 | disposition left against medical advice (07) ==
PROVIDERS: Emergency Provider Emergency Medicine; PCP Nurse Practitioner Primary Care
DX: T40.1X1A Poisoning by heroin, accidental (unintentional), initial encounter (principal); Y92.9 Unspecified place or not applicable; I10 Essential (primary) hypertension; F32.9 Major depressive disorder, single episode, unspecified; F41.9 Anxiety disorder, unspecified; G89.29 Other chronic pain; I25.2 Old myocardial infarction; K50.10 Crohn's disease of large intestine without complications; J44.9 Chronic obstructive pulmonary disease, unspecified; G40.909 Epilepsy, unspecified, not intractable, without status epilepticus; Z87.442 Personal history of urinary calculi; Z79.899 Other long term (current) drug therapy; F17.210 Nicotine dependence, cigarettes, uncomplicated
CPT/HCPCS: 71045; 80048; 82077; 82550; 83880; 84484; 85025; 93005; 96360; 96361; 99285; A4216

== ENCOUNTER 2020-11-04 18:25 | Emergency (ER) | payer MEDICAID, SELFPAY ==
[2020-11-04 18:26] VITALS: BP 157/121; PULSE 102; RESP 22; TEMP 36; O2SAT 95; BMI 29.7
--- NOTE | 2020-11-04 18:33 | ED.RN ---
pt refusing tx to the
--- NOTE | 2020-11-04 18:34 | ED.RN ---
law enforcemnt at bedside.
--- NOTE | 2020-11-04 18:35 | EX.ED.DYSGE1 ---
HPI History of Present Illness Chief Complaint: Unresponsive Narrative Narrative: 50-year-old female with history of opiate abuse, opiate overdose, polysubstance abuse, alcohol abuse, alcohol withdrawal presenting with altered mental status resolved with Narcan x3 in the field by EMS. Apparently the patient was in her bathroom at home and her significant other gym called EMS after she was in there for 20 minutes. [employer] did feel as if she might have flushed the drugs down the toilet. She states that she had addiction counseling this morning to [employer] and that she is unsure when she bought drugs. She states that she is not sure what she is used. She cannot tell me how much alcohol she is used. Patient does admit to some left lower quadrant abdominal pain. Patient denies fever or chills. It is unknown if patient fell but she is not complaining of pain elsewhere. She states that she does not want detox from drugs or alcohol. And states she does not want any lab work or imaging performed. [facility] Medical History Alcohol abuse Anxiety Chronic pain COPD (chronic obstructive pulmonary disease) Crohn's colitis Depression Hypertension Kidney stones Myocardial infarct Seizures Smoker Substance abuse Home Medications cetirizine 10 mg PO DAILY 09/27/20 [History Last Taken 09/26/20] doxycycline hyclate 100 mg PO BID 09/27/20 [History Last Taken 09/26/20] guaifenesin [Mucinex] 1,200 mg PO BID 09/27/20 [History Last Taken 09/26/20] prednisone 40 mg PO DAILY 09/27/20 [History Last Taken 09/26/20] Allergy/AdvReac Type Severity Reaction Status Date / Time morphine AdvReac Mild really Verified 11/04/20 18:26 irratated trazodone AdvReac Pain in Verified 11/04/20 18:26 joints Social History Smoking Status: Current every day smoker tobacco type: cigarettes ROS ROS ED Constitutional Constitutional ED: Denies chills, fever(s) or sweats Eyes Eyes: Denies blurry vision or change in vision ENT ENT ED: Denies ear pain or sore throat Cardiovascular Cardiovascular: Denies chest pain, palpitations or racing heartbeat Respiratory/Chest Respiratory/Chest: Denies cough, dyspnea or sputum Gastrointestinal Gastrointestinal: Reports abdominal pain; Denies constipation, diarrhea, nausea or vomiting Genitourinary Genitourinary ED: Denies dysuria, hematuria or urinary frequency Musculoskeletal Musculoskeletal: Denies arthralgias, myalgias or neck pain Integumentary Denies abscess, Abrasions or rash Neurologic Neurologic: Denies headache(s), paresthesias or weakness Psychiatric Psychiatric: Denies anxiety, depression, suicidal ideation or suicidal thoughts Endocrine Endocrinology: Denies polydipsia or polyuria EXAM Physical Exam Const Vital Signs: 11/04/20 18:26 Temperature 96.8 F L Temperature Source Temporal Pulse Rate 102 H Respiratory Rate 22 H Blood Pressure 157/121 H Blood Pressure Mean 133 Pulse Ox 95 Oxygen Delivery Method Room Air Positive obese General Appearance ED: NAD Nutritional Appearance: obese HEENT Reports moist mucous membranes Negative for trauma Eyes PERRL and EOMs intact bilaterally General Eye ED: Negative for pale conjunctiva or scleral icterus Resp normal respiratory effort and clear to auscultation bilaterally Cardio regular rhythm Rate: tachycardic GI Palpation: tender LLQ Neuro oriented x3 and CN's II-XII intact bilaterally Sensorium / Orientation: alert Motor Exam: strength 5/5 throughout Psych Attitude: agitated Mood & Affect: anxious Skin no rashes or lesions noted and no wounds MDM MDM MDM Narrative Medical decision making narrative: Patient presenting to [facility] after altered mental status and being found down for about 20 minutes by her significant other gym. Apparently she has a history of drug abuse and alcohol abuse. She currently refuses any lab work, imaging. She is complaining of left lower quadrant abdominal pain but I am reluctant to give her pain medication since she just overdosed and is not allowing me to do a work-up. Patient is alert and oriented x3. I feel at this time she has the capacity to make this decision. She was interviewed by [facility] as well and states that she has no more drugs at home. They did state that they felt she flushed it down the toilet. Patient has not been monitored for 2 hours in the ED. I attempted to call her significant other who did not answer the phone nor did he call back. Patient is refusing all medical work-up and treatment. She does not want detox from ETOH or drugs. i feel she is competent to make this decision. I feel at this time the patient is safe to be discharged home now. Impression: 1. Opiate overdose Discharge Plan Triage Chief Complaint: Unresponsive ED Provider: Jose Manuel Mckeon Dx/Rx/DC Orders Clinical Impression: Opiate abuse, continuous Prescriptions: No Action cetirizine 10 mg tablet 10 mg PO DAILY RF: 0 prednisone 20 mg Tablet 40 mg PO DAILY RF: 0 doxycycline hyclate 100 mg tablet 100 mg PO BID RF: 0 guaifenesin [Mucinex] 600 mg Tablet Extended Release 12hr 1,200 mg PO BID RF: 0 Primary Care Provider: Jenni Hightower NP Referrals: Jenni Hightower NP, [employer] [Primary Care Provider] -
--- NOTE | 2020-11-04 18:46 | ED.RN ---
PT AGREEABLE TO OBSERVATION AT THIS TIME BUT CONTINUES TO DENY LABS OR IMAGING.
[2020-11-04 20:47] VITALS: BP 144/96; PULSE 88; RESP 15; O2SAT 93
== END 2020-11-04 20:58 | disposition home or self-care (01) ==
PROVIDERS: Emergency Provider Student in an Organized Health Care Education/Training Program; PCP Nurse Practitioner Primary Care
DX: F11.10 Opioid abuse, uncomplicated (principal); F10.10 Alcohol abuse, uncomplicated; E66.9 Obesity, unspecified; Z68.29 Body mass index [BMI] 29.0-29.9, adult; J44.9 Chronic obstructive pulmonary disease, unspecified; I25.2 Old myocardial infarction; G89.29 Other chronic pain; K50.10 Crohn's disease of large intestine without complications; Z87.442 Personal history of urinary calculi; F17.210 Nicotine dependence, cigarettes, uncomplicated
CPT/HCPCS: 99284